=== PATIENT | female | born 1965 | race Caucasian/White ===

== ENCOUNTER 2020-08-22 10:42 | Outpatient (CLI) | payer BC, SELFPAY ==
--- NOTE | ~2020-08-22 | CT_ITS ---
EXAMINATION:CT lung screening DATE: 08/22/2020 11:17 INDICATION: Personal history of tobacco dependence. Current smoker with 37 pack year history. TECHNIQUE: Computed tomography (CT) of the chest was performed without intravenous contrast. Automate d exposure control and iterative reconstruction technique were employed. The dose-length product (DLP ) was 442.70 mGy-cm. COMPARISON: Chest CT 12/30/2006, CT abdomen and pelvis 05/24/2017 FINDINGS: There is mild emphysema. There is mild atelectasis bilaterally. A calcified left lung nodul e and calcified left hilar lymph nodes are consistent with old granulomatous disease. There are great er than 10 scattered nodules in the lungs. Nodules at the minor fissure and in right middle lobe rosendo uring up to 7 mm are stable from 12/30/2006. The largest nodule that is new from 12/26/2006 measures 4 mm in right lower lobe. No pleural effusion. The heart size is normal. There are coronary artery calcif ications. No pericardial effusion. There is diffuse hepatic steatosis. There is thoracic dextroscolio sis and severe spondylosis. IMPRESSION: 1. Lung-RADS category 3: Probably benign. Further evaluation is recommended with noncontrast low-dose chest CT in 6 months. Reviewed, dictated and finalized at location A. IMPRESSION: 1. Lung-RADS category 3: Probably benign. Further evaluation is recommended wit h noncontrast low-dose chest CT in 6 months.
== END 2020-08-22 10:43 | disposition home or self-care (01) ==
PROVIDERS: PCP Internal Medicine; Visit Provider Nurse Practitioner
DX: Z12.2 Encounter for screening for malignant neoplasm of respiratory organs (principal); Z87.891 Personal history of nicotine dependence; R91.1 Solitary pulmonary nodule; J43.9 Emphysema, unspecified; I25.10 Atherosclerotic heart disease of native coronary artery without angina pectoris
CPT/HCPCS: G0297

== ENCOUNTER 2021-03-17 12:48 | Outpatient (CLI) | payer BC, SELFPAY ==
--- NOTE | ~2021-03-17 | CT_ITS ---
EXAMINATION: CT diagnostic chest wo con DATE: 03/17/2021 13:09 INDICATION: Multiple nodules of the lung TECHNIQUE: Computed tomography (CT) of the chest was performed without intravenous contrast. The dose -length product was 364.61 mGy-cm. Automated exposure control and iterative reconstruction technique were employed. COMPARISON: CT dated 08/22/2020 and 12/30/2006 FINDINGS: There is atherosclerosis of the aorta and coronary arteries. No significant lymphadenopathy . No significant pleural or pericardial effusion. No endobronchial lesions. Stable bilateral pulmonar y nodules, largest measuring up to 7 mm involving the minor fissure and right middle lobe. Mild emphy sema. No new pulmonary nodules or masses. No focal airspace consolidation. No endobronchial lesions. No thoracic lymphadenopathy. Mild thoracic spondylosis. IMPRESSION: 1. Stable bilateral pulmonary nodules, likely benign. Follow-up low dose CT chest in 12 months recomm ended. Reviewed, dictated and finalized at location B. IMPRESSION: 1. Stable bilateral pulmonary nodules, likely benign. Follow-up low dose CT [facility] st in 12 months recommended.
== END 2021-03-17 12:49 | disposition home or self-care (01) ==
PROVIDERS: PCP Internal Medicine; Visit Provider Nurse Practitioner
DX: R91.8 Other nonspecific abnormal finding of lung field (principal)
CPT/HCPCS: 71250

== ENCOUNTER 2022-02-02 08:15 | Outpatient (CLI) | payer MEDICARE, SELFPAY ==
--- NOTE | ~2022-02-02 | MM_ITS ---
EXAMINATION: MM screening melo BI w zulema HISTORY: Screening mammogram TECHNIQUE: Craniocaudal and mediolateral oblique 3-D tomosynthesis images were obtained and synthetic 2-D images were generated. CAD analysis was submitted and interpreted. COMPARISON: No prior mammogram is available for comparison at this institution. BREAST PARENCHYMAL COMPOSITION: There are scattered areas of fibroglandular density. FINDINGS: There is no evidence of suspicious mass, calcification, or architectural distortion to sugg est malignancy in either breast. IMPRESSION: 1. No mammographic evidence of malignancy. 2. Recommend routine screening mammography in one year. BI-RADS Category 1: Negative Reviewed, dictated and finalized at location A.
== END 2022-02-02 08:16 | disposition home or self-care (01) ==
PROVIDERS: PCP Internal Medicine; Visit Provider Internal Medicine
DX: Z12.31 Encounter for screening mammogram for malignant neoplasm of breast (principal)
CPT/HCPCS: 77063; 77067

== ENCOUNTER 2022-03-06 08:03 | Emergency (ER) | payer MEDICARE, SELFPAY ==
[2022-03-06 08:11] VITALS: BP 154/76; PULSE 80; RESP 16; TEMP 36.2; O2SAT 100
--- NOTE | 2022-03-06 08:15 | ED.EAR ---
HPI - Ear Problem General Chief complaint: Ear Stated complaint: Ear Pain Time Seen by Provider: 03/06/22 08:16 Source: patient Mode of arrival: ambulatory Limitations: no limitations History of Present Illness HPI Narrative: 56-year-old female presents with complaint of right ear pain for 2 days. No other complaints. Taking ibuprofen for pain. Denies sinus symptoms, nasal congestion. No dizziness. No change to hearing. All systems reviewed and negative except as noted above. Related Data Home Medications Medication Instructions Recorded Confirmed budesonide-formoterol HFA 160 1 inh INHALATION ONCE 01/05/22 03/06/22 mcg-4.5 mcg/actuation aerosol inhaler hydrochlorothiazide 12.5 mg tablet 12.5 mg PO DAILY 01/05/22 03/06/22 montelukast 10 mg tablet 10 mg PO DAILY 01/05/22 03/06/22 pravastatin 40 mg tablet 40 mg PO DAILY 01/05/22 03/06/22 quinapril 40 mg tablet 40 mg PO DAILY 01/05/22 03/06/22 tiotropium bromide 2.5 2 puff INHALATION DAILY 01/05/22 03/06/22 mcg/actuation mist for inhalation verapamil mg PO 03/06/22 Allergies Allergy/AdvReac Type Severity Reaction Status Date / Time No Known Allergies Allergy Verified 03/06/22 08:14 Review of Systems Review of Systems: CONSTITUTIONAL: Denies fever, chills, or sweats. EYES: Denies visual changes, redness, or discharge. ENT: Denies rhinorrhea, congestion, sore throat. Reports right ear pain. CARDIOVASCULAR: Denies chest pain, palpitations, or edema. RESPIRATORY: Denies cough or dyspnea. GASTROINTESTINAL: Denies abdominal pain, nausea, vomiting, or diarrhea. GENITOURINARY: Denies dysuria or hematuria. SKIN: Denies rash or itching. MUSCULOSKELETAL: Denies back pain, joint pain, or myalgia. NEUROLOGIC: Denies headache, numbness, or weakness. PSYCHIATRIC: Denies anxiety or depression. All other systems reviewed are negative, except as documented in HPI. [facility] Past Medical History Medical History (Updated 03/06/22 @ 08:20 by Suzanne Serrano NP) Arthritis of left glenohumeral joint History of stress test Approx. 5 years ago. Surgical History Surgical History History of hand surgery right History of shoulder surgery left Hx of hand surgery left Family History Family History (Updated 01/25/22 @ 08:12 by Sherry Franz MA) Other Diabetes mellitus High cholesterol Hypertension Social History Social History Smoking status: Former smoker Tobacco type: cigarettes Alcohol intake: never Substance use: never Substance use type: does not use Comments At time of signature, agree with nursing past medical, surgical, social and family history. There is no relevant family history pertinent to the presenting complaint. Exam Narrative: GENERAL: This is a well-nourished, well-developed patient, in no apparent distress. HEAD: normocephalic, atraumatic. EYES: PERRL. Sclera clear/white. Vision is grossly intact. EARS: External ears normal, auditory canals clear and without drainage, TMs normal without perforation. Hearing grossly intact. NOSE: External nose normal with no obvious nasal discharge, nares without redness, no rhinorrhea. THROAT: Mucous membranes moist, posterior pharynx clear. NECK: Neck supple, non-tender without lymphadenopathy, masses or thyromegaly. CARDIOVASCULAR: Regular rate and rhythm without murmurs, gallops, or rubs. RESPIRATORY: Clear to auscultation. Breath sounds equal bilaterally. No wheezes, rales, or rhonchi. GASTROINTESTINAL: Abdomen soft, non-tender, nondistended. Bowel sounds are active. No hepato-splenomegaly, or palpable masses. No guarding. SKIN: warm, Dry, intact with no suspicious lesions or rash, good texture and turgor. NEURO: awake, alert, and oriented to person, place and time. There were no obvious focal neurologic abnormalities. EXTREMITIES: No joint tenderness, effusion, or juan francisco
== END 2022-03-06 08:37 | disposition home or self-care (01) ==
PROVIDERS: Emergency Provider Nurse Practitioner Family
DX: H66.91 Otitis media, unspecified, right ear (principal); Z87.891 Personal history of nicotine dependence; M19.012 Primary osteoarthritis, left shoulder; E78.00 Pure hypercholesterolemia, unspecified; I10 Essential (primary) hypertension; J44.9 Chronic obstructive pulmonary disease, unspecified; E11.9 Type 2 diabetes mellitus without complications
CPT/HCPCS: 99213; G0463

== ENCOUNTER → 2022-03-10 08:27 | Outpatient (CLI) | payer MEDICARE, SELFPAY ==
--- NOTE | ~2022-03-10 | CT_ITS ---
EXAMINATION:CT diagnostic chest wo con DATE: 03/10/2022 08:47 INDICATION: Lung nodules. TECHNIQUE: Computed tomography (CT) of the chest was performed without intravenous contrast. Automate d exposure control and iterative reconstruction technique were employed. The dose-length product (DLP ) was 361.46 mGy-cm. COMPARISON: Chest CT 03/17/2021, 08/22/2020 FINDINGS: There is mild emphysema. There is mild atelectasis in left lung. There is a 4 mm nodule in right upper lobe. There is a 3 mm nodule in right upper lobe. There is a 5 mm nodule in right middle lobe. There are nodules at minor fissure measuring up to 6 mm. There is a 4 mm nodule in right lower lobe. These findings are stable from 03/17/2021. A calcified left lung nodule and calcified left hilar lymph nodes are consistent with old granulomatous disease. No pleural effusion. The heart size is no rmal. There are coronary artery calcifications. No pericardial effusion. There is severe thoracic spo ndylosis. IMPRESSION: 1. Lung-RADS category 2: Benign appearance or behavior. Continue annual screening with noncontrast lo w-dose chest CT in 12 months. Reviewed, dictated and finalized at location B. IMPRESSION: 1. Lung-RADS category 2: Benign appearance or behavior. Continue annual screeni ng with noncontrast low-dose chest CT in 12 months.
== END ==
PROVIDERS: Visit Provider Nurse Practitioner
DX: R91.8 Other nonspecific abnormal finding of lung field (principal)
CPT/HCPCS: 71250

== ENCOUNTER 2023-01-19 15:57 | Emergency (ER) | payer MEDICARE, SELFPAY ==
--- NOTE | ~2023-01-19 | XR_ITS ---
EXAMINATION: XR ankle LT min 3V DATE: 01/19/2023 16:31 INDICATION: Left ankle injury. Fall. TECHNIQUE: 4 views of left ankle were obtained. COMPARISON: None. FINDINGS: Bone alignment is normal. No fracture. Joint spaces are normal. There are enthesophytes at the posterior and plantar aspects of calcaneal tuberosity. There are enthesophytes at medial and late ral malleoli. Ankle soft tissue swelling is noted. IMPRESSION: 1. No fracture. Reviewed, dictated and finalized at location A. EURIZER HELPER IMPRESSION: 1. No fracture.
[2023-01-19 16:15] VITALS: BP 158/81; PULSE 96; RESP 16; TEMP 36.6; O2SAT 97
--- NOTE | 2023-01-19 16:23 | ED.LOWEXIN ---
HPI - Extremity Injury (Lower) General Chief Complaint: Extremity Injury, Lower Stated Complaint: Left Ankle Pain Time Seen by Provider: 01/19/23 16:20 Source: patient Mode of arrival: ambulatory Limitations: no limitations History of Present Illness HPI Narrative: Avani is a 57-year-old female patient presenting to clinic today with complaints of left ankle pain after twisting her ankle when she came in to her front door and slipped on a dog bone. She is reporting pain to the left lateral ankle. States she did feel a crack/pop. Related Data Home Medications Medication Instructions Recorded Confirmed budesonide-formoterol HFA 160 1 inh inhalation ONCE 01/05/22 01/19/23 mcg-4.5 mcg/actuation aerosol inhaler (Symbicort) hydrochlorothiazide 12.5 mg tablet 12.5 mg PO DAILY 01/05/22 01/19/23 montelukast 10 mg tablet 10 mg PO DAILY 01/05/22 01/19/23 pravastatin 40 mg tablet 40 mg PO DAILY 01/05/22 01/19/23 quinapril 40 mg tablet 40 mg PO DAILY 01/05/22 01/19/23 tiotropium bromide 2.5 2 puff inhalation DAILY 01/05/22 01/19/23 mcg/actuation mist for inhalation (Spiriva Respimat) verapamil 180 mg tablet,extended 180 mg PO DAILY 03/06/22 01/19/23 release atorvastatin 40 mg tablet 40 mg PO DAILY 01/19/23 01/19/23 clopidogrel 75 mg tablet 75 mg PO DAILY 01/19/23 01/19/23 cyclobenzaprine 10 mg tablet 10 mg PO DAILY 01/19/23 01/19/23 glipizide 5 mg tablet 5 mg PO DAILY 01/19/23 01/19/23 Allergies Allergy/AdvReac Type Severity Reaction Status Date / Time No Known Allergies Allergy Verified 01/19/23 16:06 Review of Systems Review of Systems: Pertinent positives per HPI. Patient denies any fever, chills, rash, headache, visual changes, dizziness, cough, runny nose, sore throat, shortness of breath, chest pain, palpitations, nausea, vomiting, diarrhea, constipation, abdominal pain, or any urinary issues. PMFSH Past Medical History Medical History Arthritis of left glenohumeral joint History of stress test Approx. 5 years ago. Surgical History Surgical History History of hand surgery right History of shoulder surgery left Hx of hand surgery left Family History Family History Other Diabetes mellitus High cholesterol Hypertension Social History Social History Smoking status: Former smoker Tobacco type: cigarettes Alcohol intake: never Substance use: never Substance use type: does not use Comments At the time of my signature, I reviewed and agree with the nursing past medical, surgical, social, and family history. There is no relevant family history pertinent to the patient complaint. Exam Narrative: General: Well-developed, well nourished, in no apparent distress Head: Normocephalic, atraumatic. Cardio: Regular rate and rhythm, s1 and s2 normal, no murmur appreciated. Resp: Clear to auscultation bilaterally, no rhonchi, rales, wheezing or rubs. Musculoskeletal: No deformity, moderate swelling noted to the left lateral ankle, tender to palpation over the left lateral ankle, range of motion within normal limits however she is in quite a bit of pain with valgus and varus testing, muscle strength strong and equal, peripheral pulse strong, no cyanosis, normal gait and station Course Course Emergency Course: Portions of this record may have been created with voice recognition software. Level of Care: Express Care Visit Vital Signs Vital signs: Vital Signs Temperature 36.6 C 01/19/23 16:15 Pulse Rate 96 01/19/23 16:15 Respiratory Rate 16 01/19/23 16:15 Blood Pressure 158/81 H 01/19/23 16:15 Pulse Oximetry 97 01/19/23 16:15 Oxygen Delivery Room Air 01/19/23 16:15 Temperature 36.6 C 01/19/23 16:15 Pulse R
== END 2023-01-19 16:48 | disposition home or self-care (01) ==
PROVIDERS: Emergency Provider Nurse Practitioner Family
DX: S93.412A Sprain of calcaneofibular ligament of left ankle, initial encounter (principal); Z87.891 Personal history of nicotine dependence; X50.0XXA Overexertion from strenuous movement or load, initial encounter
CPT/HCPCS: 73610; 99213; G0463

== ENCOUNTER → 2023-03-22 07:37 | Outpatient (CLI) | payer MEDICARE, SELFPAY ==
--- NOTE | ~2023-03-22 | CT_ITS ---
EXAMINATION: CT diagnostic chest wo con DATE: 03/22/2023 08:13 INDICATION: Multiple nodule of lung TECHNIQUE: Computed tomography (CT) of the chest was performed without intravenous contrast. Addition al 3D reconstructions utilizing coronal maximum intensity projection (MIP) were performed. Automated exposure control and iterative reconstruction technique were employed. The dose-length product was 32 0.32 mGy-cm. COMPARISON: 03/10/2022 and 08/22/2020 FINDINGS: Small pneumatocele in the right middle lobe. Mild atelectasis at the basilar left lower lobe and ante romedial lingula and right middle lobe. Again seen are multiple small scattered bilateral pulmonary n odules, the largest measuring 5 mm in the right middle lobe and the remaining measuring 4 mm or small er. There are also a few small flat likely intrafissural lymph nodes, the largest measuring 9 mm in l ength and 3 mm in thickness. There is also unchanged since 08/22/2022 and which along with a couple sm all calcified nodules in the left lung and calcified left hilar lymph nodes are likely sequela of old granulomatous disease. A few nodules are noted on the earlier study which have since resolved. No ne w or enlarging nodules identified. No pneumonia, pulmonary edema or pleural effusion. Heart size is n ormal. Atherosclerotic coronary artery calcifications. No pericardial effusion. Thoracic aorta is nor mal in caliber. No pathologically enlarged thoracic lymphadenopathy. Mild thoracic dextroscoliosis wi th severe spondylosis. IMPRESSION: 1. No interval change since 2019 and several small calcified and noncalcified pulmonary nodules and a few intrafissural lymph nodes, almost certainly benign sequela of old granulomatous disease. No new or enlarging pulmonary nodules identified. Reviewed, dictated and finalized at location L. IMPRESSION: 1. No interval change since 2019 and several small calcified and noncalcified p ulmonary nodules and a few intrafissural lymph nodes, almost certainly benign s equela of old granulomatous disease. No new or enlarging pulmonary nodules iden tified.
== END ==
PROVIDERS: PCP Internal Medicine; Visit Provider Nurse Practitioner
DX: R91.8 Other nonspecific abnormal finding of lung field (principal)
CPT/HCPCS: 71250

== ENCOUNTER 2023-05-05 15:35 | Outpatient (CLI) | payer MEDICARE, SELFPAY ==
--- NOTE | ~2023-05-05 | MM_ITS ---
EXAMINATION: MM screening melo BI w zulema HISTORY: Screening mammogram TECHNIQUE: Craniocaudal and mediolateral oblique 3-D tomosynthesis images were obtained and synthetic 2-D images were generated. CAD analysis was submitted and interpreted. COMPARISON: 02/02/2022 bilateral screening mammogram examination BREAST PARENCHYMAL COMPOSITION: There are scattered areas of fibroglandular density. FINDINGS: There is an approximately 2.5 mm irregular high density opacity at the posterior central ri ght breast on craniocaudal view. Diagnostic right mammogram and right breast ultrasound are recommend ed. Otherwise there is no evidence of suspicious mass, calcification, or architectural distortion to sug gest malignancy in either breast. There has been no other suspicious interval change. IMPRESSION: 1. Irregular 2.5 mm high density opacity in the posterior central right breast on craniocaudal view 2. Diagnostic right mammogram and targeted right breast ultrasound examination are recommended BI-RADS Category 0: Incomplete: Needs additional imaging evaluation. Reviewed, dictated and finalized at location A.
== END 2023-05-05 15:36 | disposition home or self-care (01) ==
LOC: ANHIMG 15:37
PROVIDERS: PCP Internal Medicine; Visit Provider Internal Medicine
DX: Z12.31 Encounter for screening mammogram for malignant neoplasm of breast (principal); R92.8 Other abnormal and inconclusive findings on diagnostic imaging of breast
CPT/HCPCS: 77063; 77067

== ENCOUNTER 2023-08-04 10:51 | Outpatient (CLI) | payer MEDICARE, SELFPAY ==
--- NOTE | ~2023-08-04 | MM_ITS ---
EXAMINATION: MM diagnostic melo RT w zulema HISTORY: Regular 2.5 mm high density opacity in posterior central right breast on screening craniocau michael view of 05/05/2023 TECHNIQUE: Additional 3-D tomosynthesis images of the right breast were performed and synthetic 2-D i mages were generated. Rolled medial and rolled lateral craniocaudal views of right breast. CAD analys is was submitted and interpreted. COMPARISON: 05/05/2023 bilateral screening mammogram BREAST PARENCHYMAL COMPOSITION: There are scattered areas of fibroglandular density. FINDINGS: The small irregular opacity in the very posterior central right breast on screening cranioc audal view of 05/05/2023 is likely due to composite shadowing. No suspicious mass lesion is evident. IMPRESSION: 1. No mammographic evidence of malignancy 2. Routine annual mammographic screening is recommended BI-RADS Category 1: Negative Reviewed, dictated and finalized at location A.
== END 2023-08-04 10:52 | disposition home or self-care (01) ==
PROVIDERS: PCP Internal Medicine; Visit Provider Internal Medicine
DX: R92.8 Other abnormal and inconclusive findings on diagnostic imaging of breast (principal)
CPT/HCPCS: 77061; 77065; G0279

== ENCOUNTER 2024-03-28 07:28 | Outpatient (CLI) | payer MEDICARE, SELFPAY ==
--- NOTE | ~2024-03-28 | CT_ITS ---
CT Scan of the Chest without Contrast: Clinical Indication: Pulmonary nodule Technique: Contiguous sections were acquired throughout the chest without intravenous contrast. Dose reduction technique was used on this scan by utilizing automated exposure control and iterative recon struction technique. The dose-length product (DLP) was 323.44 mGy-cm. COMPARISON: 03/22/2023 Findings: There is no evidence of any significant mediastinal, hilar or axillary lymphadenopathy. Extensive cor onary artery calcifications are present. There is no evidence of pleural or pericardial effusion. Stable 4 mm right upper lobe pulmonary nodule (axial image 26). Stable subcentimeter right middle lob e pulmonary nodules. Stable 5 mm right lower lobe pulmonary nodule. Images through the upper abdomen reveal no abnormalities. Impression: Stable subcentimeter pulmonary nodules. Reviewed, dictated and finalized at location . Impression: Stable subcentimeter pulmonary nodules.
== END 2024-03-28 07:29 ==
LOC: MICIMG 07:29
PROVIDERS: PCP Internal Medicine; Visit Provider Internal Medicine
DX: R91.1 Solitary pulmonary nodule (principal); R91.8 Other nonspecific abnormal finding of lung field
CPT/HCPCS: 71250

== ENCOUNTER 2025-02-22 07:13 | Outpatient (CLI) | payer MEDICARE, SELFPAY ==
--- NOTE | ~2025-02-22 | DEXA_ITS ---
Bone Density Report Name: SULMA ANGELES Age: 59 Sex: Female Ethnicity: White Date of : 1965 Indication: postmenopausal; screening for osteoporosis; height loss; asthma or emphysema; Referring Provider: NIDHI, NCI Study: Bone densitometry was performed. Exam Date: February 22, 2025 Accession number: [id number] Bone Density: Region BMD T-score Z-score Classification AP Spine(L1-L4) 1.010 -0.3 1.1 Normal Femoral Neck (Left) 0.837 -0.1 1.2 Normal Total Hip (Left) 0.969 0.2 1.2 Normal Femoral Neck (Right) 0.764 -0.8 0.5 Normal Total Hip (Right) 0.949 0.1 1.0 Normal Total Hip Mean 0.959 0.2 1.1 Normal World Health Organization criteria for BMD impression classify patients as: Normal (T-score at or above -1.0), Osteopenia (T-score between -1.0 and -2.5), or Osteoporosis (T-score at or below -2.5). 10-year Fracture Risk: FRAX not reported because: All T-scores for Spine Total, Hip Total, Femoral Neck at or above -1.0 Clinical Information Provided by Patient: Smokes Has used the following medications: Vitamin D Has the following medical conditions: Asthma or Emphysema, COPD Patient maximum height was 69 Menopause Age: 36 No regular weight bearing exercise Does not regularly consume dairy products Drinks caffeinated beverages Onset of menses at age 17 Number of children 1 Impression: The patient has normal bone mass. The patient has risk factors, including: smoking. Discussion: BONE DENSITY IS ABOVE THE MINIMUM DESIRABLE LEVEL AT ALL SKELETAL SITES TESTED. This patient?s bone mineral density is above the minimum desirable level (T-score -1.0 or better) at all sites measured. The patient should follow a healthful lifestyle (good nutrition with adequate calcium and vitamin D, and appropriate weight-bearing exercise). Follow-Up: Consider repeating this study in 5 years or sooner if there is some new clinical indication. Reported by: GEOVANY on 02/22/2025 7:55:00 AM. Reviewed, dictated and finalized at location [facility]
--- NOTE | ~2025-02-22 | MM_ITS ---
EXAMINATION: MM screening melo BI w zulema HISTORY: Screening TECHNIQUE: Craniocaudal and mediolateral oblique 3-D tomosynthesis images were obtained and synthetic 2-D images were generated. CAD analysis was submitted and interpreted. COMPARISON: Comparison to multiple prior studies sequentially, with oldest reviewed study dated 02/02. BREAST PARENCHYMAL COMPOSITION: Not dense: There are scattered areas of fibroglandular density. FINDINGS: There is no evidence of suspicious mass, calcification, or architectural distortion to sugg est malignancy in either breast. There has been no suspicious interval change. IMPRESSION: 1. No mammographic evidence of malignancy. 2. Recommend routine screening mammography in one year. BI-RADS Category 1: Negative Reviewed, dictated and finalized at location A.
--- OUTSIDE RECORDS SUMMARY | 2025-02-22 07:17 | XMS_ITS | Encounter Summary ---
Author Organization [facility] Facility Care Team Providers Care Geologist Name Role Phone Gail Lee MD Primary Care Provide r Mala Smith CFD ENGINEER Unavailable [phone] Gail Lee MD Primary Care Provide r Encounter Details Date Type Department Care Team (Latest Contact Info) Description 01/30/2019 Orders Only [facility] CLINCONV ProviderIna MD [address] [place] [id number] Social History Tobacco Use Types Packs/Day Years Used Date Smoking Tobacco: Former Comments Unknown Sex and Gender Information Value Date Recorded Sex Assigned at Not on file Legal 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 Historical Provider Final Res ult documented in this encounter Visit Diagnoses Not on filedocumented in this encounter Care Teams Geologist Relationship Specialty Start Date End Date Gail Lee MD [address] [address] PCP - General 01/01/19 02/27/19 Gail Lee MD [address] [address] PCP - General Internal Medicine 03/20/19 Mala Smith NP [address] [address] 01/01/19 02/27/19 documented as of this encounter
--- OUTSIDE RECORDS SUMMARY | 2025-02-22 07:17 | XMS_ITS | Continuity of Care Document ---
Author Organization [facility] Address [address] [place] [address] [place] [address] Phone Care Team Providers Care Activities Director Name Role Phone Kimberly Vaz Unavailable Unavailable Procedures Procedure Date Office/outpatient Visit, [facility] Advance Directives Directive Yes / No Effective Date File Name No Information Encounters Encounter Description Practice Location Reason(s) For Visit Diagnoses Date Provider Providers Copied on Encounter Office/outpat ient Visit, [facility], [id number] [place] [address] [address], [place], [place], [id number], [place] tel:[phone] [facility] No Information 0 Татьяна Harris. [address] [place] , [address], [place], [address], [place]. tel:[phone] Family History Family Member Type Diagnosis Age At Onset No Information Payers Payer name Insurance type Covered green party ID Authoriza tion(s) No Information Social History Type Description Quantity Date Captured Comments Sex Female Smoking Status No Information Chief Complaint And Reason For Visit No Information Reason For Referral Reason For Referral No Information History Of Present Illness Encounter Date Complaint History Of Prese nt Illness No Information Functional Status Date Functional Assessmen t No Information Instructions Date Instruction Additional Infor mation No Information Assessments Type Assessment Date No Information Patient Care Teams Name Effective Dates (start - stop) Status Members No Information
--- OUTSIDE RECORDS SUMMARY | 2025-02-22 07:17 | XMS_ITS | Encounter Summary ---
Author Organization 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 Historical Provider Final Res ult documented in this encounter Visit Diagnoses Not on filedocumented in this encounter Care Teams Watch Engine Operator Relationship Specialty Start Date End Date Gail Lee MD [address] [address] PCP - General 01/01/19 02/27/19 Gail Lee MD [address] [address] PCP - General Internal Medicine 03/20/19 Mala Smith NP [address] [address] 01/01/19 02/27/19 documented as of this encounter
--- OUTSIDE RECORDS SUMMARY | 2025-02-22 07:17 | XMS_ITS | Referral Summary ---
Author Organization [facility] Address [address] [place] [address] Care Team Providers Care Auto Body Mechanic Apprentice Name Role Phone Gail Lee MD Primary Care Provide r Allergies No known active allergies Medications hydroCHLOROthia zide (HYDRODIURIL) 12.5 mg tabletIndicatio ns:Edema,hypert ension Take 1 tablet (12.5 mg total) by mouth every morning Active montelukast (SINGULAIR) 10 mg tabletIndicatio ns:Maintenance Therapy for Asthma,Seasonal Allergic Rhinitis Take 1 tablet (10 mg total) by mouth every morning Active verapamil SR (CALAN SR) 180 mg CR tabletIndicatio ns:hypertension Take 1 tablet (180 mg total) by mouth every morning Active albuterol (PROVENTIL,VENT LUIS) 2.5 mg /3 mL (0.083 %) nebulizer solutionIndicat ions:Acute Asthma Attack,Chronic Obstructive Pulmonary Disease Take 3 mL (2.5 mg total) by nebulization as needed for wheezing or shortness of breath Active cyclobenzaprine (FLEXERIL) 10 mg tabletIndicatio ns:Muscle Spasm Take 1 tablet (10 mg total) by mouth 3 (three) times a day as needed for muscle spasms Active glipiZIDE (GLUCOTROL) 5 mg tabletIndicatio ns:type 2 diabetes mellitus Take 1 tablet (5 mg total) by mouth every morning 2 Active albuterol HFA (PROVENTIL HFA,VENTOLIN HFA,PROAIR HFA) 90 mcg/actuation inhalerIndicati ons:Acute Asthma Attack,Chronic Obstructive Pulmonary Disease Inhale 2 puffs as needed for wheezing or shortness of breath Active lisinopriL (PRINIVIL,ZESTR IL) 20 mg tabletIndicatio ns:hypertension Take 1 tablet (20 mg total) by mouth every morning Active budesonide-glyc opyr-formoterol 160-9-4.8 mcg/actuation HFA aerosol inhalerIndicati ons:Bronchospas m Prevention with COPD,asthma Inhale 2 puffs 2 (two) times a day Active aspirin 81 mg enteric coated tabletIndicatio ns:Deep Vein Thrombosis Prevention Take 1 tablet (81 mg total) by mouth 2 (two) times a day 28 tablet 4 Active acetaminophen 500 mg capsuleIndicati ons:Pain Take 2 capsules (1,000 mg total) by mouth every 6 (six) hours 90 tablet 4 Active Additional Information Patient not taking.Reported on 11/19/2024 celecoxib (CeleBREX) 200 mg capsuleIndicati ons:Postoperati ve Acute Pain,Pain Take 1 capsule (200 mg total) by mouth 2 (two) times a day 28 capsule 4 Active Additional Information Patient not taking.Reported on 11/19/2024 docusate sodium (COLACE) 100 mg capsuleIndicati ons:constipatio n Take 1 capsule (100 mg total) by mouth 2 (two) times a day 60 capsule 4 Active Additional Information Patient not taking.Reported on 11/19/2024 HYDROcodone-sumanth taminophen (NORCO) 5-325 mg per tabletIndicatio ns:Pain TAKE ONE TO TWO TABLETS EVERY 4 TO 6 HOURS PRN PAIN 40 tablet 4 Active atorvastatin (LIPITOR) 80 mg tablet Take 1 tablet (80 mg total) by mouth daily 4 Active cholecalciferol (VITAMIN D-3) 50,000 unit capsule Take 1 capsule (50,000 Units total) by mouth once a week Active Active Problems Problem Noted Date Diagnosed Date Acute upper respiratory infection 11/19/2024 Assessment & Plan (11/19/2024 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 Osteoarthritis of left shoul nirav, unspecified osteoarthritis type 01/17/2024 Osteoarthritis of glenohumeral joint, left 11/01 Status post insertion of dayna g-eluting stent into left anterior descending (LAD) artery 10/13/2022 Abnormal nuclear stress test 09/14/2022 Abnormal nuclear cardiac imaging test 08/09/2022 Essential hypertension 05/31/2022 Diabetes mellitus type II, non insulin dependent 05/31/2022 Coronary artery disease of n ative artery of [place] heart with stable angina pectoris 05/31/2022 RONNELL (obstructive sleep apnea) 05/31/2022 Assessment & Plan (11/19/2024 12:24 PM [employer]ILD C[employer] ATT[employer]ANT [employer]): She has tried and failed PAP therapy I have encouraged her to follow with sleep medicine to explore alternate options We have discussed the risks of uncorrected RONNELL Abnormal liver function 04/06/2022 Coronary arteriosclerosis 04/06/2022 Breakthrough bleeding 03/02/2022 Fatigue 09/18/2021 Insomnia with sleep apnea 09/18/2021 Multiple nodules of lung 09/18/2021 Obstructive sleep apnea syndrome 09/01/2020 Asthma-chronic obstructive p ulmonary disease overlap syndrome 01/01/2020 Assessment & Plan (11/19/2024 12:22 PM [employer]ILD [employer] ATT[employer]): Continue Breztri 2 puffs BID. Albuterol as needed only, discussed indications for use She has filled out the assistance paperwork today in the office She is current on vaccines I strongly recommend pulmonary rehab I have instructed her to monitor her pulse ox at home when she is dyspneic and to call the office if this registers below 88% Obstructive sleep apnea syndrome 10/01/2019 Anxiety state 06/25/2019 Asthma 06/25/2019 Essential hypertension 06/25/2019 Gastroesophageal reflux disease 06/25/2019 Mixed hyperlipidemia 06/25/2019 Low back pain 06/25/2019 Vitamin D deficiency 06/25/2019 Sinusitis 06/25/2019 Daytime hypersomnia 04/24/2019 Dyspnea on exertion 04/24/2019 Obesity with body mass index 30 or greater 04/24 Chronic obstructive pulmonary disease 04/24/2019 Lung mass 03/27/2019 Atherosclerotic heart diseas e of [place] coronary artery without angina pectoris 03/27/2019 Bilateral carpal tunnel syndrome 12/18/2018 Cubital tunnel syndrome on left 12/18/2018 Cubital tunnel syndrome on right 12/18/2018 Trigger finger of left thumb 12/18/2018 Trigger finger of right thumb 12/18/2018 Numbness of hand 08/29/2017 Dizziness 03/01/2017 Arthralgia of ankle 01/18/2017 Knee pain 08/15/2015 Dyslipidemia 05/22/2009 Shortness of breath 05/22/2009 Fatigue 05/22/2009 Obesity 05/22/2009 Nicotine dependence, cigarettes, uncomplicated 0 05/22/2009 Assessment & Plan (11/19/2024 12:23 PM [employer]ILD [employer] ATT[employer]ANT [employer]): She continues to smoke about 1 PPD - Smoking cessation counseling and techniques reviewed at length - Avoid triggers and use distraction techniques - Information given regarding [place] Tobacco Quit line: 4-299-[phone] for free services - 4 minutes spent discussing cessation She is due for annual lung cancer screening in March of 2025 Asthma 05/22/2009 Arteriosclerosis of coronary artery 05/22/2009 Essential (primary) hypertension 05/22/2009 Immunizations Immunization Administration Dates Next Due Influenza LAIV (Nasal) 08/23/2022 Influenza, Quadrivalent, Split, Intramuscular Influenza, Trivalent, Cell C ulture-based MDCK, Preservative Free, Antibiotic Free, Intramuscular 09/09/2015,10/09/2014 Influenza, Trivalent, Preservative Free, Intramu scular 10/01/2013 Tdap 10/31/2018 Social History Tobacco Use Types Packs/Day Years Used Date Smoking Tobacco: Every Day Cigarettes 0.5 44.3 Started: 1980 Passive Smoke Exposure: Never Smokeless Tobacco: Never Tobacco Cessation:Ready to Q uit: Not Asked; Counseling Given: Not Answered Alcohol Use Standard Drinks/Week Comments Never 0 (1 standard drink = 0.6 oz pur e alcohol) AUDIT-C Answer Date Recorded Q1: How often do you have a drink containing alc ohol? Never 11/19/2024 Average Number of Drinks Not on file 024 Frequency of Binge Drinking Not on file 10/23 Personal Safety Answer Date Recorded Have you ever been in or are you currently in a harmful physical or emotional relationship or is someone making you feel afraid or unsafe? Denies 01/17/2024 Comments No Sex and Gender Information Value Date Recorded Sex Assigned at Not on file Legal Sex Female 11:07 PM [employer] Gender Identity Not on file Sexual Orientation Not on file Occupation Industry Job Start Date Job End Date [employer] Not on file Not on file Not on file Last Filed Vital Signs Vital Sign Reading Time Taken Comments Blood Pressure 124/72 11/19/2024 8:24 AM [employer]ILD [employer] Pulse 87 11/19/2024 8:24 AM [employer] Temperature 36.7 C (98.1 F) 11/19/2024 8:24 AM [employer] Respiratory Rate 16 11/19/2024 8:24 AM [employer] Oxygen Saturation 95% 11/19/2024 8:24 AM [employer] Inhaled Oxygen Concentration - - Weight 119.4 kg (263 lb 3.2 oz) 11/19/2024 8:24 AM [employer] Height 175.3 cm (5' 9 ) 11/19/2024 8:24 AM [employer] Body Mass Index 38.87 11/19/2024 8:24 AM [employer] Plan of Treatment Not on file Medical Devices Implanted Type Area Technical Writer Device Identifier Shelf Expiration Date Model / Serial / Lot [employer] Xience Skypoint Everolimus Eluting Coronary Stent [id number] Rapid-Exchange [id number] - [id number] Implanted:Qty: 1 on 09/14/2022 by Betty Juarez MD at [facility] [employer] 02/18/2023 [id number] / / [id number] [facility] Tailored Fit Angio-Seal Vip 6fr Closere Device [id number] - [id number] Implanted:Qty: 1 on 09/14/2022 by Betty Juarez MD at [facility] Tailored Fit 06/20/2023 [id number] / / [id number] [employer] Simplex P Radiopaque Full Dose Cement Bone Sterile 6191-1-010 - [id number] Implanted:Qty: 1 on 01/17/2024 by Austin Bach MD at [facility] [employer] [id number] 09/20/2025 6191-1-010 / / [id number] [employer] [place] Modular Component Glenoid Sterile Latex Free [id number] - [id number] Implanted:Qty: 1 on 01/17/2024 by Austin Bach MD at [facility] [employer] [id number] 08/21/2032 [id number] / / [id number] [employer] Component Glenoid 4 Peg Modular Shoulder Left Augment Sz 3 [id number] - [id number] Implanted:Qty: 1 on 01/17/2024 by Austin Bach MD at [facility] [employer] [id number] 06/14/2028 [id number] / / [id number] [employer] Stem Humeral Adapter Implant Shoulder Reverse 135 Degree Identity [id number] - [id number] Implanted:Qty: 1 on 01/17/2024 by Austin Bach MD at [facility] [employer] [id number] 11/01/2032 [id number] / / [id number] [employer] Humeral Stem Standard Size 9 [id number] - [id number] Implanted:Qty: 1 on 01/17/2024 by Austin Bach MD at [facility] [employer] [id number] 12/07/2032 [id number] / / [id number] [employer] Head Humeral Adapter Implant Shoulder Reverse Stem Fixed Identity [id number] - [id number] Implanted:Qty: 1 on 01/17/2024 by Austin Bach MD at [facility] [employer] [id number] 06/12/2033 [id number] / / [id number] [employer] Head Humeral Shoulder Reverse Stem Fixed Identity [id number] [employer] [id number] - [id number] Implanted:Qty: 1 on 01/17/2024 by Austin Bach MD at [facility] [employer] [id number] 10/01/2032 [id number] / / [id number] Procedures Procedure Name Priority Date/Time Associated Diagnosis Comments EGFR Timed 01/17/2024 11:49 PM [employer] POCT HEMOGLOBIN A1C Routine 12/27/2023 8 :48 AM [employer] from Last 3 Months or Most Recently Relevant to Health Maintenance Results * eGFR (01/17/2024 11:49 PM [employer]) eGFR >90 >=60 mL/min/1. 73 m2 [facility] Comment: Interpretive Data Reference Interval Normal >/= 90 mL/min/1.73m2 Mildly decreased* 60 - 89 mL/min/1.73m2 Mildly to moderately decreased 45 - 59 mL/min/1.73m2 Moderately to severely decreased 30 - 44 mL/min/1.73m2 Severely decreased 15 - 29 mL/min/1.73m2 Kidney Failure < 15 mL/min/1.73m2 *Relative to young adult level Estimated glomerular filtration rate is determined by the 2020 CKD-EPI equation recommended by the National Kidney Foundation (A Unifying Approach to GFR Estimation: Recommendations of the NKF-ASK Task Force on Reassessing the Inclusion of Race in Diagnosing Kidney Disease, JASN 2020). The CKD-EPI equation should not be used for patients with unstable renal function and has not been validated in children and those over 70. Current interpretive data was last reviewed 2021. Blood 01/17/2024 11:4 9 PM [facility] [employer] 01/18/2024 12:17 AM [employer] [employer] us Humberto Rojas DO LAB BLOOD ORDERABLES Fin al Result [facility] Department [place] [address] * (ABNORMAL) POCT hemoglobin A1c (12/27/2023 8:48 AM [employer]ILD [employer]) Hgb A1C, POC 6.3(H) 4.0 - 5.6 % [facility] Est Average Gluc POC 134 mg/dL [facility] Comment: The ADA recommends reporting an estimated Average Glucose (eAG) with all Hemoglobin A1c results using the equation derived from a study of 507 normal and diabetic adults. Minority populations were underrepresented and children were not included. (Diabetes Care 31:6983-5838, 2008). The eAG is not equivalent to a fasting glucose. Blood 12/27/2023 8:48 AM [facility] [employer] 12/27/2023 8:48 AM [employer] [employer] Austin Bach MD POINT OF CARE CLARKE T ORDERABLES Final Result Performing Organization Address City/State/[facility] Co de Phone Number [facility] Department [place] [address] from Last 3 Months or Most Recently Relevant to Health Maintenance Insurance HUMANA MEDICARE HMO HUMANA MEDICARE HMO HUMANA MEDICARE HMO Advance Directives For more information, please contact: [phone] * Full Code (Latest Code Status on File) Date Activated Date Inactivated Comments 01/17/2024 11:38 AM 01/18/2024 3:39 PM * Full Code Date Activated Date Inactivated Comments 09/14/2022 10:03 AM 09/15/2022 4:45 PM Care Teams Auto Body Mechanic Apprentice Relationship Specialty Start Date End Date Gail Lee MD PCP - General Internal Medicine 03/20/19
--- OUTSIDE RECORDS SUMMARY | 2025-02-22 07:17 | XMS_ITS | Clinical Summary ---
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): She continues to smoke about 1 PPD - Smoking cessation counseling and techniques reviewed at length - Avoid triggers and use distraction techniques - Information given regarding [place] Tobacco Quit line: [phone]-YES for free services - 4 minutes spent [...] Preservative Free, Intramu scular 10/01/2013 Tdap 10/31/2018 Surgical History Surgery Date Site/Laterality Comments CARPAL TUNNEL RELEASE Bilateral had CTR twice on both sides SECTION ELBOW ARTHROSCOPY Bilateral HEEL SPUR SURGERY Bilateral & cut tendons in arch of foot CARDIAC STENT PLACEMENT SHOULDER ARTHROSCOPY Left FLUORO GUIDED INJECTION SHOULDER LEFT 02/16/2023 Left Medical History Medical History Date Comments Asthma Hypercholesteremia Hypertension Pneumonia Diabetes (HCC) COPD (chronic obstructive pulmonary disease) (HC C) RONNELL (obstructive sleep apnea) do esnt use sleep machine CAD (coronary artery disease) PONV (postoperative nausea and vomiting) Family History Medical History Relation Name Comments Hypertension Brother Deep vein thrombosis Father Family history of deep venous thrombosis - (Added by TW Conv) Diabetes Father Family history of diabetes mellitus - (Added by TW Conv) Hypertension Father Family history of hypertension - (Added by TW Conv) Lung disease Father Lung trouble - (Added by TW Conv) Clotting disorder Mother Deep vein thrombosis Mother Family history of deep venous thrombosis - (Added by TW Conv) Hypertension Mother Family history of hypertension - (Added by TW Conv) Anesthesia problems Neg Hx Relation Name Status Comments Brother Father Mother Social History Tobacco Use Types Packs/Day Years [...] on file Legal Sex Female 11:07 PM LAYOUT OPERATOR Gender Identity Not on file Sexual Orientation Not on file 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 Not on file Not on file Obstetrics History Last Filed Vital Signs Vital Sign Reading Time Taken Comments Blood Pressure 124/72 11/19/2024 8:24 AM LAYOUT OPERATOR Pulse 87 11/19/2024 8:24 AM LAYOUT OPERATOR Temperature 36.7 C (98.1 F) 11/19/2024 8:24 AM LAYOUT OPERATOR Respiratory Rate 16 11/19/2024 8:24 AM LAYOUT OPERATOR Oxygen Saturation 95% 11/19/2024 8:24 AM LAYOUT OPERATOR Inhaled Oxygen Concentration - - Weight 119.4 kg (263 lb 3.2 oz) 11/19/2024 8:24 AM LAYOUT OPERATOR Height 175.3 cm (5' 9 ) 11/19/2024 8:24 AM LAYOUT OPERATOR Body Mass Index 38.87 11/19/2024 8:24 AM LAYOUT OPERATOR Plan of Treatment Health Maintenance Due Date Last Done Comments Albumin Creatinine Ratio, Urine 1965 Breast Cancer Screening-Mammogram 1965 Cervical Cancer Screening 1965 Colon Cancer Screening-Colonoscopy 1965 Depression Screening 1965 Hepatitis C Screening 1965 Dilated Eye Exam 1965 Foot Exam 1965 Lipid Panel 1965 Hepatitis B Screening 1983 Regular Well Visit/Exam 18-64 1983 Pneumococcal vaccine <65 (1 of 2 - PCV) 1984 Lung Cancer Screening 2015 Zoster Vaccine (1 of 2) 2015 Hemoglobin A1C 06/26/2024 12/27/2023 Covid-19 Vaccine (2023-2 5 season) 2024 10/21/2021, 02/10/2021, 01/13/2021 Influenza Vaccine (#1) 2024 , 09/02/2022, 08/23/2022, Additional history exists eGFR 01/17/2025 01/17/2024, 02/0 04/2024, 08/30/2022 DTaP/Tdap/Td Vaccine (2 - Td or Tdap) 10/31/2028 10/31/2018 Medical Devices Implanted Type Area Tiltrotor Crew Chief Device Identifier Shelf Expiration Date Model / Serial / Lot [employer] Xience Skypoint Everolimus Eluting Coronary Stent [id number] Rapid-Exchange [id number] - [id number] Implanted:Qty: 1 on 09/14/2022 by Betty Juarez MD at [facility] [employer] 02/18/2023 [id number] / / [id number] [facility] Comfy Angio-Seal Vip 6fr Closere Device [id number] - [id number] Implanted:Qty: 1 on 09/14/2022 by Betty Juarez MD at [facility] Memopal Varun 06/20/2023 [id number] / / [id number] [employer] Simplex P Radiopaque Full Dose Cement Bone Sterile 6191-1-010 - [id number] Implanted:Qty: 1 on 01/17/2024 by Austin Bach MD at [facility] [employer] [id number] 09/20/2025 6191-1-010 / / [id number] [employer] [place] Modular Component Glenoid Sterile Latex Free [id number] - [id number] Implanted:Qty: 1 on 01/17/2024 by Austin Bach MD at [facility] [employer] [id number] 08/21/2032 [id number] / / [id number] [employer] Component Glenoid 4 Peg Modular Shoulder Left Augment Sz 3 [id number] - [id number] Implanted:Qty: 1 on 01/17/2024 by Austin Bach MD at [facility] [employer] [id number] 06/14/2028 [id number] / / [id number] [employer] Stem Humeral Adapter Implant Shoulder Reverse 135 Degree Identity [id number] - [id number] Implanted:Qty: 1 on 01/17/2024 by Austin Bach MD at [facility] [employer] [id number] 11/01/2032 [id number] / / [id number] [employer] Humeral Stem Standard Size 9 [id number] - [id number] Implanted:Qty: 1 on 01/17/2024 by Austin Bach MD at [facility] [employer] [id number] 12/07/2032 [id number] / / [id number] [employer] Head Humeral Adapter Implant Shoulder Reverse Stem Fixed Identity [id number] - [id number] Implanted:Qty: 1 on 01/17/2024 by Austin Bach MD at [facility] [employer] [id number] 06/12/2033 [id number] / / [id number] [employer] Head Humeral Shoulder Reverse Stem Fixed Identity [id number] [place] [employer] [id number] - [id number] Implanted:Qty: 1 on 01/17/2024 by Austin Bach MD at [facility] [employer] [id number] 10/01/2032 [id number] / / [id number] Procedures Procedure Name Priority Date/Time Associated Diagnosis Comments EGFR Timed 01/17/2024 11:49 PM LAYOUT OPERATOR POCT HEMOGLOBIN A1C Routine 12/27/2023 8 :48 AM LAYOUT OPERATOR from Last 3 Months or Most Recently Relevant to Health Maintenance Results * eGFR (01/17/2024 11:49 PM LAYOUT OPERATOR) eGFR >90 >=60 mL/min/1. 73 m2 [facility] Comment: Interpretive Data Reference Interval Normal >/= [...] reviewed 2021. Blood 01/17/2024 11:4 9 PM LAYOUT OPERATOR 01/18/2024 12:17 AM LAYOUT OPERATOR us Humberto Rojas DO LAB BLOOD ORDERABLES Fin al Result [facility] [place] [address] * (ABNORMAL) POCT hemoglobin A1c (12/27/2023 8:48 AM LAYOUT OPERATOR) Hgb A1C, POC 6.3(H) 4.0 - 5.6 % [facility] Est Average Gluc POC 134 mg/dL [facility] Comment: The ADA recommends reporting an estimated Average Glucose (eAG) with all Hemoglobin A1c results using the equation derived from a study of 507 normal and diabetic adults. Minority populations were underrepresented and children were not included. (Diabetes Care 31:4424-5511, 2008). The eAG is not equivalent to a fasting glucose. Blood 12/27/2023 8:48 AM LAYOUT OPERATOR 12/27/2023 8:48 AM LAYOUT OPERATOR Austin Bach MD POINT OF CARE CLARKE T ORDERABLES Final Result Performing Organization Address City/State/[facility] Co de Phone Number [facility] [place] [address] from Last 3 Months or Most Recently Relevant to Health Maintenance Insurance [id number] HUMANA MEDICARE HMO [facility] MEDICARE HMO HUMANA MEDICARE HMO Advance Directives For more information, please contact: [phone] * Full Code (Latest Code Status on File) Date Activated Date Inactivated Comments 01/17/2024 11:38 AM 01/18/2024 3:39 PM * Full Code Date Activated Date Inactivated Comments 09/14/2022 10:03 AM 09/15/2022 4:45 PM Care Teams Helicopter Engineer Relationship Specialty Start Date End Date Gail Lee MD PCP - General Internal Medicine 03/20/19
--- OUTSIDE RECORDS SUMMARY | 2025-02-22 07:17 | XMS_ITS | Data Portability ---
Author Organization [place] [facility], Main Office Address [address] [place] [address] Care Team Providers Care Forging Operator Name Role Phone DENIA LEE Primary Care Provider [phone] DENIA LEE Referring Provider YAKOV SHIRLEY Orthopedic Surgeon PAPO GARZA Pot Press Operator WILDER WALLER Manager Cardiology Assessment Encounter Date Assessment Date Assessment LastModified by Organization Details LastModified Time 03/01/2024 03/01/2024 01/03/2023: TSH/FT4/CBC/CMP: WNL TG 174, LDL 107 A1C 6.3 07/07/2023: TG 171 A1C 6.6 VIT D 17.2 10/21/2023: HCT 47.3 Gluc 113 TG 180, LDL 115 A1C 6.3 VIT D 30.8 Not available 02/28/2024 18:29:58 04/10/2024 04/10/2024 Assessment: Nicotine smoke: 1.5 ppd since 1993 (quit 2 years in between) = 42 pack years Mild COPD Bilateral pulm nodules Mild OSAHS, AHI = 11, CPAP intolerant Plan: The following were reviewed and explained to the patient: primary care/referral note PFT 09/14/21 FEV1 2.40 L (82%), BD 50 mL = 2% Chest CT 03/17/21 stable up to 7 mm right pulm nodules Chest CT 03/10/22 stable up to 6 mm right pulm nodules Chest CT 03/22/23 stable up to 5 mm bilateral pulm nodules Chest CT 03/28/24 stable up to 5 mm right pulm nodules [facility] home sleep study 06/11/19 AHI = 11, supine AHI = 13 Nicotine cessation counseling provided for 4 minutes. [place] for quitting nicotine include getting ready, getting support and encouragement, learning new skills and behaviors and being prepared to handle slips. Tips for dealing with cravings provided. Prevention of subsequent illnesses from nicotine addiction discussed. Comorbidities include but are not limited to hypertension, cerebrovascular disease, coronary heart disease, congestive heart failure, hyperlipidemia, COPD/asthma, peptic ulcer disease, esophagitis/gastri tis, and osteoporosis. Therapy options offered include: Quitting by total abstinence Receiving nicotine replacement therapy Undergoing hypnosis Filling a bupropion or varenicline prescription Enrolling in Quit For Life program Registering at www.quitline.flux - neutrinity Making a call to 9-528-KCRC-NOW ( ). A strong, clear, personalized message was given to the patient to quit smoking. The patient was urged to set a quit date. We discussed patient's barriers to quitting and I will be of assistance when patient is ready to quit. I encouraged patient to inform friends and family of plans to quit with a request for support. I encouraged the patient to remove all cigarettes from the environment. We reviewed any previous quit attempts and lessons learned from them. I encouraged total abstinence from smoking and advised the patient that drinking alcohol and/or associating with other smokers are associated with failure or relapse. Patient can enroll in [facility]'s smoking cessation class through Zeenat Smith RN at . Enrollment is free and classes are held every tuesday of the month from 1:30 pm to 2:30 pm at the conference room next to the cafeteria on the ground floor. Differential diagnoses for pulmonary nodule: 1. malignant tumor 2. benign tumor 3. inflammatory processes 4. infectious process (viral, atypical bacterial, fungal, atypical mycobacterial) The Fleischner Society pulmonary nodule recommendations below pertain to the follow-up and management of indeterminate pulmonary nodules detected incidentally on CT and are published by the Fleischner Society. The guideline does not apply to lung cancer screening, patients younger than 35 years, or patients with a history of primary cancer or immunosuppression. These recommendations reflect the 2017 revision 4, which supersedes prior versions published in 2005 and 2013. Multiple solid nodules <6 mm (<100 mm3) *low-risk patients: no routine follow-up required *high-risk patients: optional CT at 12 months Multiple solid nodules >6 mm (>100 mm3) *low-risk patients: CT at 3-6 months, then consider CT at 18-24 months *high-risk patients: CT at 3-6 months, then CT at 18-24 months Cough/Dyspnea workup will be done as follows: Complete pulmonary function testing (PFT) General information on COPD was covered. Educational video was shown. The video explained what COPD is and how it affects breathing. Self-care skills such as not smoking, using medications as prescribed, oxygen therapy, and knowing when to contact the healthcare provider are covered. Diaphragmatic breathing and pursed lip breathing are explained and demonstrated. Positive lifestyle changes are introduced. Following these self-care skills will help in the management of COPD so the patient can stay out of the hospital. Continue Albuterol HFA as needed. Continue Breztri aerosphere 160/9/4.8 mcg 2 puffs BID. Gargle after use. The patient does not know how to accurately administer the inhalers. Today, the patient was shown how to take these medications. The proper technique for delivering these medications was instructed. The patient expressed a clear understanding and demonstrated back how to use these medications. Without the proper technique, the patient will not reap the benefits of these medications as the contents will not reach the lower airways as intended to be. Adherence to therapy is advocated. Nonadherence may lead to treatment failure, further progression of the condition, and other complications. Hospitals admissions are often the result of individuals not taking prescription medications accurately. Alternatively, greater adherence to medication regimens have shown to lower rates of hospitalization and decrease total medical costs in patients with chronic medical conditions. Advocated influenza vaccination annually and pneumonia vaccination ABENA. Advocated weight loss through diet and exercise. Patient's ideal body weight according to height and gender is up to 150 lbs. Encouraged patient to adjust caloric intake to maintain/achieve ideal body weight, emphasizing on fruits, vegetables, whole grains, and fat-free or low-fat products. These include lean meats, poultry, fish, beans, eggs, and nuts and foods that are low in saturated fats, trans-fats, cholesterol, salt (sodium), and glycemic index. Stressed the importance of regular exercise up to the patient's capacity limits. In this case, we recommend 20 min daily walking, 2 days a week of resistance training. Patient to monitor BP daily and bring records to PCP for further management. Follow-up: 1 week after PFT [email or web address] Not available 04/10/2024 09:52:08 07/05/2024 07/05/2024 01/03/2023: TSH/FT4/CBC/CMP: WNL TG 174, LDL 107 A1C 6.3 07/07/2023: TG 171 A1C 6.6 VIT D 17.2 10/21/2023: HCT 47.3 Gluc 113 TG 180, LDL 115 A1C 6.3 VIT D 30.8 06/21/2024: TG 195, LDL 101 A1C 6.8 VIT D 27.4 Not available 06/27/2024 15:08:15 11/08/2024 11/08/2024 01/03/2023: TSH/FT4/CBC/CMP: WNL TG 174, LDL 107 A1C 6.3 07/07/2023: TG 171 A1C 6.6 VIT D 17.2 10/21/2023: HCT 47.3 Gluc 113 TG 180, LDL 115 A1C 6.3 VIT D 30.8 06/21/2024: TG 195, LDL 101 A1C 6.8 VIT D 27.4 11/07/2024: Chol 203, LDL 107 VIT D 28.6, A1C 6.5 Not available 11/09/2024 22:07:41 01/31/2025 01/31/2025 01/03/2023: TSH/FT4/CBC/CMP: WNL TG 174, LDL 107 A1C 6.3 07/07/2023: TG 171 A1C 6.6 VIT D 17.2 10/21/2023: HCT 47.3 Gluc 113 TG 180, LDL 115 A1C 6.3 VIT D 30.8 06/21/2024: TG 195, LDL 101 A1C 6.8 VIT D 27.4 11/07/2024: Chol 203, LDL 107 VIT D 28.6, A1C 6.5 01/28/2205: TG 195 A1C 6.3 Not available 01/31/2025 09:30:25 Plan of Treatment Reminders Order Date Submit Date Provider Last Modified By Organization Details Last Modified Time Details Appointments Any 15 2024 08:45A Calderon masterson MD Not available Not available Not available Lab lipid panel, serum [address], [address] [place], [address], 01/31/2025 15:22:14 CMP, serum or plasma [address], [address] [place], [address], 01/31/2025 15:22:14 CBC w/ auto diff [address], [address] [place], [address], 01/31/2025 15:22:15 TSH + free T4, serum [address], [address] [place], [address], 01/31/2025 15:22:15 vitamin D, 25-hydr oxy, total, serum 2024 025 [email or web address] [address] [facility], 2022 Cristin Francis, [address], [address], 01/31/2025 15:22:16 microal bumin, urine [address], [address] [place], [address], 01/31/2025 15:22:14 HbA1c (hemogl obin A1c), blood [address], [address] [place], [address], 01/31/2025 15:22:14 lipid panel, serum 2023 024 J[facility], [address] [place], [address], 01/30/2025 01:58:27 CMP, serum or plasma 2023 024 [facility], [address] [place], [address], 01/30/2025 01:58:27 CBC w/ auto diff 2023 024 [facility], [address] [place], [address], 01/30/2025 01:58:26 TSH + free T4, serum 2023 024 [facility], [address] [place], [address], 01/30/2025 01:58:27 vitamin D, 25-hydr oxy, total, serum 2023 [address] [place] [facility], [address] Cristin Francis, [address] [address], [place], [address], 01/30/2025 01:58:27 microal bumin, urine [address] [place] [address], [address] [place], [address], 11/08/2024 10:40:37 HbA1c (hemogl obin A1c), blood 2023 024 [facility], [address] [place], [address], 01/30/2025 01:58:27 lipid panel, serum 2023 024 [facility], [address] [place], [address], 11/19/2024 11:42:40 CMP, serum or plasma 2023 024 [facility], [address] [place], [address], 11/19/2024 11:42:40 CBC w/ auto diff 2023 024 [facility], [address] [place], [address], 11/19/2024 11:42:40 TSH + free T4, serum 2023 024 [facility], [address] [place], [address], 11/19/2024 11:41:21 vitamin D, 25-hydr oxy, total, serum 2023 024 [place] [facility], [address] Cristin Francis, [address] [address], [place], [address], 11/19/2024 11:42:41 microal bumin, urine 2023 024 [facility], [address] [place], [address], 11/19/2024 11:42:41 HbA1c (hemogl obin A1c), blood 2023 024 [facility], [address] [place], [address], 11/19/2024 11:42:40 lipid panel, serum 2023 024 [facility], [address] [place], [address], 06/22/2024 09:29:19 CMP, serum or plasma 2023 024 [facility], [address] [place], [address], 06/22/2024 09:29:20 CBC w/ auto diff 2023 024 [facility], [address] [place], [address], 06/22/2024 09:29:20 TSH + free T4, serum 2023 024 [facility], [address] [place], [address], 06/22/2024 09:29:20 vitamin D, 25-hydr oxy, total, serum 2023 024 [place] [facility], [address] Cristin Francis, [address], [place], [address], 06/22/2024 09:29:20 microal bumin, urine [address] [place] [address], [address] [place], [address], 08/28/2024 08:37:56 HbA1c (hemogl obin A1c), blood [address] [place] [address], [address] [place], [address], 08/28/2024 08:37:56 Referral pulmono logist referra l - Please call patient to sara e an appoint ment. Thank you. 2024 025 [facility] Michelle Dewitt [facility], [address] [facility] , [address], [place], [address], 02/07/2025 11:45:35 diabeti c ophthal mology referra l - Please call patient to sara e an appoint ment. Thank you. [address] [facility], [address] [place], [address], 02/07/2025 11:20:46 podiatr ist referra l - Please call patient to sara e an appoint ment. Thank you. 2024 025 [email or web address] Yvan Bhandari DPM, [address] [facility], [address], [place], [address], 02/07/2025 10:36:00 pulmono logist referra l 2023 024 Michelle Dewitt [facility]-, [address] [facility] , [address], [place], [address], 11/13/2024 17:53:05 diabeti c ophthal mology referra l - Please call patient to schedul e. 2023 024 [email or web address] [facility], [address] [place], [address], 01/16/2025 09:50:20 podiatr ist referra l - Please call patient to schedul e. 2023 024 [email or web address] Yvan Bhandari DPM, [address], [address], [place], [address], 01/16/2025 09:50:20 pain managem ent referra l 2023 024 [email or web address] [facility], [address], [address], [place], [address], 01/29/2025 10:01:40 pulmono logist referra l 2023 024 [email or web address] Michelle Dewitt [facility]-, [address] [facility] , [address], [place], [address], 10/03/2024 16:57:19 pulmono logist referra l 2023 024 [email or web address] Papo Garza MD, [address] [facility] , [address], [place], [address], 10/03/2024 16:57:20 diabeti c ophthal mology referra l 2023 024 [email or web address] Not available 11/13/2024 17:53:43 podiatr ist referra l 2023 024 [email or web address] Yvan Bhandari DPM, [address], [address], [place], [address], 11/13/2024 17:53:55 cardiol ogist referra l 2023 024 JESS Waller MD, [address] [facility] , [place], [address], 10/31/2024 11:49:10 pulmono logist referra l 2023 024 [email or web address] Arun Capone MD, [address] [place], [address], 05/30/2024 11:08:30 pulmono logist referra l 2023 024 [email or web address] Papo Garza MD, [address] [facility] , [facility] [address], [place], [address], 07/30/2024 15:44:36 diabeti c ophthal mology referra l 2023 024 [email or web address] Not available 08/28/2024 08:38:58 podiatr ist referra l 2023 024 [email or web address] Yvan Bhandari DPM, [address] [facility] [address], [place], [address], 09/11/2024 16:39:37 Procedures None recorde d. Surgeries None recorde d. Imaging MAMMO, screeni ng, digital , bilater al - Please call patient to schedul e. [address] ([facility]), [address] [place], [address], 01/31/2025 10:39:03 DEXA, axial skeleto n - Please call patient to schedul e. 2024 025 [facility] ([facility]), [address] [place], [address], 01/31/2025 10:45:33 MAMMO, screeni ng, digital , bilater al 2023 024 [email or web address] [facility], [address] [facility] [address], [place], [address], 11/08/2024 15:43:59 DEXA, axial skeleto n 2023 024 [email or web address] [facility], [address] [facility] [address], [place], [address], 11/08/2024 15:44:34 MAMMO, screeni ng, digital , bilater al 2023 024 [facility], [address] [facility] [address], [place], [address], 07/30/2024 11:07:15 DEXA, axial skeleto n 2023 024 [email or web address] [facility], [address] [facility] [address], [place], [address], 01/07/2025 15:05:58 DEXA, axial skeleto n 2023 024 [email or web address] [facility], [address] [facility] [address], [place], [address], 08/28/2024 08:38:22 Medication Orders choleca lcifero l (vitami n D3) 1,250 mcg (50,000 unit) capsule 2023 024 marcus [facility], [address], [place], [address], 01/31/2025 09:40:38 icosape nt ethyl 1 gram capsule 2023 024 yue laRoxi [facility], [address], [place], [address], 11/08/2024 10:34:22 albuter ol sulfate HFA 90 mcg/act uation aerosol inhaler 2023 024 JESS [facility], [address], [place], [address], 04/10/2024 09:44:33 Breztri Aerosph ere 160 mcg-9mc g-4.8mc g/actua tion HFA aerosol inhaler 2023 024 [facility], [address] , [place], [address], 04/10/2024 09:44:33 Patient TargetsNo targets recorded. Patient Instructions Encounter Date Encounter Id Patient Instructions Last Modified By Organization Details Last Modified Time 03/01/2024 [id number] dementia rating scale-2* [email or web address] Not available 03/01/2024 10:00:57 depression screening* [email or web address] Not available 03/07/2024 17:58:18 alcohol misuse* [email or web address] 2 Not available 03/07/2024 17:58:18 multi-dimensiona l health assessment questionnaire* [email or web address] Not available 03/01/2024 10:14:55 Personalized [facility] lt Plan and Screening Recommendations Advance Directives - Do you have one? No Advance Directives - Do we have your advance directive on file in your health record? Primary Prevention/Interven tion (prevents or decreases the chance of common diseases from occurring) Smoking Risk: Smoker Refer to attached smoking cessation handouts Refer to attached handouts and prescription will be sent to pharmacy Continue to consider stopping smoking and call if we can assist you Alcohol Misuse Screening: Negative Weight: Appropriate Overwei ght continue your current weight loss efforts try to lose 5% of your body weight try to lose 10% of your body weight Physical activity: Need more exercise/physical activity decrease sitting time to no more than 5hr/day Nutrition: Good Average Fall Risk (screened today): Low Vaccines Pneumococcal: Influenza: Your next one in the fall of this year Chronic Disease Risks Stroke: Low Risk Intermediate Risk I have no recommendations Act naeem diagnosis, Continue current treatment plan Heart Attack: Low risk Intermediate Risk I have no recommendations Act naeem diagnosis, Continue current treatment plan Clogging of the Arteries: Low risk Intermediate Risk I have no recommendations Act naeem diagnosis, Continue current treatment plan Diabetes: High Risk Active diagnosis, Continue current treatment plan Secondary Prevention/Interven tion (detects treatable diseases before they may cause symptoms, disability, or ) Breast Cancer Screening with mammogram: Cervical/Uterine/Ov apryl Cancer Screening: No screening necessary Osteoporosis Screening: Your next DEXA in: Ordered Date Screening Last Performed: _N/A Colon Cancer Screening: Colonoscopy Fecal Occult Blood Cologuard (DNA stool test) Date Screening Last Performed: 04/2021 Eye Disease Screening: Dementia Risk: Low I have no recommendations Depression Screening: Negative [email or web address] Not available 03/01/2024 10:50:21 04/10/2024 [id number] complete PFT w/ post bronchodilator spirometry* [email or web address] Not available 04/17/2024 08:56:31 Reason for Referral Diabetic Ophthalmology Refer ral for Type 2 diabetes mellitus without complication Referring Physician: Denia Lee Internal Medicine, Encounter Date: 03/01/2024 Granulizing Machine Operator Referral for Type 2 diabetes mellitus without complication Referring Physician: Juan Tracy Medicine, Encounter Date: 03/01/2024 Pot Press Operator Referral for A sthma Referring Physician: Juan Tracy Medicine, Encounter Date: 03/01/2024 Pot Press Operator Referral for O bstructive sleep apnea syndrome Referring Physician: Juan Tracy, Encounter Date: 03/01/2024 Diabetic Ophthalmology Refer ral for Type 2 diabetes mellitus without complication Referring Physician: Denia Lee Internal Medicine, Encounter Date: 07/05/2024 Granulizing Machine Operator Referral for Type 2 diabetes mellitus without complication Referring Physician: Juan Tracy, Encounter Date: 07/05/2024 Pot Press Operator Referral for A sthma Referring Physician: Juan Tracy, Encounter Date: 07/05/2024 Pot Press Operator Referral for O bstructive sleep apnea syndrome Referring Physician: Juan Tracy, Encounter Date: 07/05/2024 Manager Cardiology Referral for Co ronary arteriosclerosis Referring Physician: Denia Lee Internal Medicine, Encounter Date: 07/05/2024 Pain Management Referral for Low back pain Referring Physician: Denia Lee Internal Medicine, Encounter Date: 07/05/2024 Diabetic Ophthalmology Refer ral for Type 2 diabetes mellitus without complication Please call patient to schedule. Referring Physician: Denia Lee Internal Medicine, Encounter Date: 11/08/2024 Granulizing Machine Operator Referral for Type 2 diabetes mellitus without complication Please call patient to schedule. Referring Physician: Denia Lee Internal Medicine, Encounter Date: 11/08/2024 Pot Press Operator Referral for A sthma Referring Physician: Denia Lee Internal Medicine, Encounter Date: 11/08/2024 Diabetic Ophthalmology Refer ral for Type 2 diabetes mellitus without complication Please call patient to schedule an appointment. Thank you. Referring Physician: Denia Lee Internal Medicine, Encounter Date: 01/31/2025 Granulizing Machine Operator Referral for Type 2 diabetes mellitus without complication Please call patient to schedule an appointment. Thank you. Referring Physician: Denia Lee Internal Medicine, Encounter Date: 01/31/2025 Pot Press Operator Referral for A sthma Please call patient to schedule an appointment. Thank you. Referring Physician: Juan Tracy Medicine, Encounter Date: 01/31/2025 Results Created Date Observation Date Name Description Value Unit Range Abnormal Flag Note LastModifiedBy Organization Detail LastModifiedTime 03/28/20 24 03/28/2024 CT, chest , w/o contr ast No observ ation record ed. JESS [facility] [address], [place], [address], 03/28/2024 10:09:34 04/03/20 24 06/11/2019 home sleep study No observ ation record ed. BARCODE Not Available 2023 10:47:58 Result Notes None recorded. Problems Name Problem SNOMED Code Status Onset Date Resolution Date Notes Provider Name and Address Organization Details Recorded Time Type 2 diabetes mellitus without complicat ion 465891670 Active 2022 Denia hamm MD [address], [address], [place], [address] , myLINGO 3 08:45:13 Smoker 67321536 Active 2022 Denia hamm MD [address], [address], [place], [address] , myLINGO 3 08:47:20 Mild chronic obstructi ve pulmonary disease 312805757 Active 2023 Arun Capone MD [address], [address], [place], [address] , myLINGO 4 09:39:30 Asthma 753899223 Active 2023 Denia hamm MD [address], [address], [place], [address] , myLINGO 4 15:06:36 Pain of left shoulder joint 09363351746 534551 Active 2023 Denia hamm MD [address], [address], [place], [address] , myLINGO 4 15:06:36 Low back pain 775921690 Active 2023 Denia hamm MD [address], [address], [place], [address] , myLINGO 4 15:06:36 Deficienc y of vitamin D3 121044464 Active 2023 Deena Kee MA null, myLINGO 4 16:29:37 Chronic obstructi ve pulmonary disease 62764685 Active 2018 Not Available [facility] 3 04:49:45 Body mass index 30+ - obesity 963136890 Active 2018 Not Available [facility] 3 04:49:45 Anxiety state 611895576 Active Not Available [facility] 3 04:49:45 Gastroeso phageal reflux disease 740920230 Active Not Available [facility] 3 04:49:45 Ankle pain 859333522 Completed Not Available [facility] 3 04:49:45 Abnormal weight loss 244864055 Completed Not Available [facility] 3 04:49:45 Pain in thoracic spine 474140091 Completed Not Available [facility] 3 04:49:46 Malaise and fatigue 287202669 Completed Not Available [facility] 3 04:49:46 Rib pain 214807204 Completed Not Available [facility] 3 04:49:46 Chest pain 33295488 Completed Not Available [facility] 3 04:49:46 Bronchiti s 41616335 Completed Not Available [facility] 3 04:49:46 Vitamin D deficienc y 19263575 Active Not Available [facility] 3 04:49:46 Multiple nodules of lung 705364237 Active 2020 Not Available [facility] 3 04:49:47 Shoulder pain 96083633 Completed Not Available [facility] 3 04:49:47 Coronary arteriosc lerosis 79840963 Active 2021 Not Available [facility] 3 04:49:47 Hyperlipi demia 59459612 Active Not Available [facility] 3 04:49:47 Essential hypertens ion 00399082 Active Not Available [facility] 3 04:49:48 Displacem ent of thoracic intervert ebral disc 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 y 36335126 Completed Not Available [facility] 3 04:49:48 Obstructi ve sleep apnea syndrome 82503360 Active 2018 Not Available [facility] 3 04:49:48 Ex-smoker 8190376 Active 2019 Not Available [facility] 04:49:49 Notes:Medical History: Anxie ty 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% Nicotine use Mild COPD Right pulmonary nodules RML pneumatocele LLL basal atelectasis Erythrocytosis Obesity with mild OSAHS, AHI = 11, 06/11/19, CPAP intolerant Hypertension Mixed hyperlipidemia T2DM CAD DAVE Umbilical hernia Hepatomegaly Diverticulosis 50% 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 Procedures Surgical History Date Name Laterality Status Provider Name and Address Organization Details Recorded Time 03/01/20 Medicare Wellness CPT Code, Initial completed Agustin Felipe LPN [facility] 03/01/2024 09:49:26 01/17/20 24 total shoulder replacement completed HARLEY Rivera [facility] 03/01/2024 09:37:11 09/14/20 Cardiac Stent Placement completed Not Available [facility] 01/19/2023 04:41:57 Foot Surgery completed Not Available [facility] 01/19/2023 04:41:57 completed Not Available [facility] 0 01/19/2023 04:41:57 Elbow arthroscopy/damien jackie completed Not Available [facility] 01/19/2023 04:41:57 other completed Not Available [facility] 11/2022 04:41:57 Dental completed Not Available [facility] 11/2022 04:41:57 Imaging Results Imaging Date Name Status LastModified by Organiz ation Details LastModified Time 03/28/2024 CT, chest, w/o contrast active [facility] 2022 Waldemar Aranda [facility], [place], [address], 03/28/2024 10:09:34 06/11/2019 home sleep study completed [facility] Information not available 04/03/2024 10:47:58 Procedure Notes None recorded. Medical Equipment None Reported. Allergies No known drug allergies Medications Name Sig Start Date Stop Date Status Note LastModified by Organization Details LastModified Time carisopro dol 350 mg tablet take 1 po prn q 8 active Not Available Not Available No t Available celecoxib 200 mg capsule 03/01 completed Not Available Not Available Not Available cyclobenz aprine 10 mg tablet TAKE 1 TABLET AT BEDTIME NEEDED. NO ALCOHOL OR DRIVING WITH THIS OR OTHER SEDATING MEDICATI ONS. active Not Available Not Available No t Available amoxicill in 500 mg capsule TAKE ONE CAPSULE BY MOUTH THREE TIMES DAILY UNTIL ALL TAKEN 08/10 completed Not Available Not Available Not Available atorvasta tin 40 mg tablet TAKE 1 TABLET EVERY DAY 07/05 completed Not Available Not Available Not Available metformin 500 mg tablet TK 1 T PO BID active Not Available Not Available No t Available hydrocodo ne 7.5 mg-ibupro fen 200 mg tablet active Not Available Not Available No t Available atorvasta tin 80 mg tablet Take 1 tablet every day by oral route. active Not Available Not Available No t Available prednison e 10 mg tablet take 40 x3, 30 x3, 20x3, 10 x3 active Not Available Not Available No t Available clindamyc in HCl 300 mg capsule TAKE 1 CAPSULE BY MOUTH EVERY 8 HOURS FOR 10 DAYS active Not Available Not Available No t Available albuterol sulfate 2.5 mg/3 mL (0.083 %) solution for nebulizat ion every 4 hours as needed active Not Available Not Available No t Available triazolam 0.25 mg tablet TAKE 1 TABLET BY MOUTH 1 HOUR BEFORE DENTAL SURGERY. BRING OTHER TABLET WITH YOU TO THE APPOINTM ENT 08/10 completed Not Available Not Available Not Available azithromy kirstie 250 mg tablet TAKE 2 TABLETS BY MOUTH FOR 1 DAY THEN TAKE 1 TABLET BY MOUTH DAILY FOR 4 DAYS 07/12 completed Not Available Not Available Not Available pravastat in 40 mg tablet 05/11 completed now on atorvast atin Not Available Not Available Not Available ibuprofen 800 mg tablet TK 1T PO EVERY 8HRS PRN active Not Available Not Available No t Available ranitidin e 300 mg tablet Take 1 tablet every day by oral route. 03/29 completed Not Available Not Available Not Available hydrocodo ne 5 mg-acetam inophen 325 mg tablet TAKE 1 TO 2 TABLETS BY MOUTH EVERY 4 TO 6 HOURS NEEDED FOR PAIN 03/01 completed Not Available Not Available Not Available minocycli ne 100 mg capsule TAKE 1 CAPSULE BY MOUTH TWICE DAILY FOR 14 DAYS active Not Available Not Available No t Available meloxicam 15 mg tablet TK 1 T PO QD 05/20 completed Not Available Not Available Not Available lisinopri l 20 mg tablet TAKE 1 TABLET EVERY DAY active Not Available Not Available No t Available prednison e 20 mg tablet TK 2 TS PO QD 01/31 completed Not Available Not Available Not Available verapamil ER (SR) 180 mg tablet,ex tended release TAKE 1 TABLET EVERY DAY active Not Available Not Available No t Available promethaz ine 6.25 mg-codein e 10 mg/5 mL syrup Take 5 mL every 6 hours by oral route. active Not Available Not Available No t Available acetamino phen 300 mg-codein e 30 mg tablet TAKE 1 TABLET BY MOUTH FOUR TIMES DAILY NEEDED FOR PAIN 08/27 completed Not Available Not Available Not Available clopidogr el 75 mg tablet Take 1 tablet every day by oral route for 90 days. 10/27 completed Not Available Not Available Not Available sulfameth oxazole 800 mg-trimet hoprim 160 mg tablet 03/29 completed Not Available Not Available Not Available omeprazol e 40 mg capsule,d elayed release Take 1 capsule every day by oral route. 03/29 completed Not Available Not Available Not Available aspirin 81 mg tablet,de layed release TAKE 1 TABLET BY MOUTH TWICE DAILY active Not Available Not Available No t Available tramadol 50 mg tablet 03/29 completed Not Available Not Available Not Available acetamino phen 500 mg tablet TAKE 2 TABLETS BY MOUTH EVERY 6 HOURS 04/01 completed Not Available Not Available Not Available quinapril 40 mg tablet TAKE 1 TABLET EVERY DAY 03/25 completed Not Available Not Available Not Available Kenalog 40 mg/mL suspensio n for injection Take 1 mL every day by injectio n route. 10/31 completed Not Available Not Available Not Available meloxicam 7.5 mg tablet Take 1 tablet every day by oral route as needed for 30 days. 03/01 completed Not Available Not Available Not Available oxycodone -acetamin ophen 5 mg-325 mg tablet 04/11 completed Not Available Not Available Not Available alprazola m 0.5 mg tablet TK 1 T PO 3 H BEFOR MRI MAY REPEAT IF NEEDED active Not Available Not Available No t Available amoxicill in 875 mg tablet TK 1 T PO BID TAT active Not Available Not Available No t Available alprazola m 0.25 mg tablet Take 1 tablet 3 times a day by oral route as needed. active take 1-2 before MRI Not Available Not Available Not Available famotidin e 20 mg tablet TK 1 T PO QD active Not Available Not Available No t Available Kenalog 10 mg/mL suspensio n for injection In office injectio n administ ered by the provider 12/27 completed ND: [id number] 03-10 Not Available Not Available Not Available benzonata te 100 mg capsule Take 1 capsule 3 times a day by oral route. active Not Available Not Available No t Available hydrocodo ne 7.5 mg-acetam inophen 325 mg tablet TK 1-2 TS PO EVERY 4-6 HOURS NEEDED active Not Available Not Available No t Available cephalexi n 500 mg capsule TK 1 C PO TID FOR 10 DAYS 05/31 completed Not Available Not Available Not Available dexametha sone 4 mg tablet 08/10 completed Not Available Not Available Not Available lidocaine 5 % topical patch APPLY 1 PATCH EXTERNAL LY TO THE SKIN EVERY DAY. MAY WEAR UP TO 12 HOURS 03/01 completed Not Available Not Available Not Available promethaz ine 25 mg tablet TAKE 1 TABLET BY MOUTH EVERY 4 TO 6 HOURS NEEDED FOR PAIN OR NAUSEA 08/10 completed Not Available Not Available Not Available nicotine 21 mg/24 hr daily transderm al patch 05/31 completed Not Available Not Available Not Available hydrochlo rothiazid e 12.5 mg capsule TAKE 1 CAPSULE EVERY DAY active Not Available Not Available No t Available nystatin- triamcino lone 100,000 unit/g-0. 1 % topical cream APPLY TO THE AFFECTED AREA(S) BY TOPICAL ROUTE 2 TIMES PER DAY IN THEMORNI NG AND EVENING PRN active Not Available Not Available No t Available etodolac 400 mg tablet Take 1 tablet twice a day by oral route for 30 days. active Not Available Not Available No t Available monteluka st 10 mg tablet TAKE 1 TABLET EVERY DAY active Not Available Not Available No t Available hydrocodo ne 5 mg-acetam inophen 500 mg tablet active Not Available Not Available Not Available pravastat in 20 mg tablet TAKE 1 TABLET DAILY active Not Available Not Available No t Available gabapenti n 100 mg capsule TK 1 C PO TID 05/30 completed Not Available Not Available Not Available estradiol 0.5 mg tablet TK 1 T PO D 11/29 completed Not Available Not Available Not Available ergocalci ferol (vitamin D2) 1,250 mcg (50,000 unit) capsule Take 1 capsule every week by oral route. active Not Available Not Available No t Available ibuprofen 600 mg tablet TAKE 1 TABLET BY MOUTH EVERY 6 HOURS NEEDED FOR PAIN 05/11 completed Not Available Not Available Not Available oxycodone -acetamin ophen 7.5 mg-325 mg tablet TAKE 1 TABLET BY MOUTH EVERY 6 HOURS NEEDED FOR DENTAL PAIN 08/10 completed Not Available Not Available Not Available verapamil 80 mg tablet Take 1 tablet twice a day by oral route. active Not Available Not Available No t Available levofloxa kirstie 750 mg tablet TK 1 T PO QD 05/31 completed Not Available Not Available Not Available methylpre dnisolone 4 mg tablets in a dose pack TK UTD 03/29 completed Not Available Not Available Not Available albuterol sulfate HFA 90 mcg/actua tion aerosol inhaler Inhale 1 puff every 4 hours by inhalati on route as needed for 30 days. active Not Available Not Available No t Available fluticaso ne propionat e 50 mcg/actua tion nasal spray,mag pension [place] 2 sprays every day by intranas al route. 10/31 completed Not Available Not Available Not Available glipizide 5 mg tablet TAKE 1 TABLET EVERY DAY active Not Available Not Available No t Available naproxen 500 mg tablet TAKE 1 TABLET BY MOUTH EVERY 12 HOURS NEEDED FOR PAIN active Not Available Not Available No t Available progester one micronize d 100 mg capsule 11/29 completed Not Available Not Available Not Available amoxicill in 875 mg-potass ium clavulana te 125 mg tablet TAKE 1 TABLET BY MOUTH EVERY 12 HOURS FOR 10 DAYS 05/11 completed Not Available Not Available Not Available oxycodone 5 mg tablet 03/01 completed Not Available Not Available Not Available neomycin- polymyxin -hydrocor t 3.5 mg-10,000 unit/mL-1 % ear drops,mag p 04/11 completed Not Available Not Available Not Available rosuvasta tin 40 mg tablet Take 1 tablet every day by oral route. 05/11 completed never got Not Available Not Available Not Available chlorhexi dine gluconate 0.12 % mouthwash RINSE WITH 15 ML BY MOUTH FOR 30 SECONDS AND EXPECTOR ATE TWICE DAILY FOR 2 WEEKS 08/10 completed Not Available Not Available Not Available vitamin E 2 tabs daily 07/12 completed Not Available Not Available Not Available lidocaine (PF) 10 mg/mL (1 %) injection solution In office injectio n administ ered by the provider 12/27 completed [facility]: [id number] Not Available Not Available Not Available Advair HFA 115 mcg-21 mcg/actua tion aerosol inhaler active Not Available Not Available Not Available fenofibra te nanocryst allized 145 mg tablet TAKE 1 TABLET BY MOUTH EVERY DAY 05/27 completed Changed to Vascepa Not Available Not Available Not Available Symbicort 160 mcg-4.5 mcg/actua tion HFA aerosol inhaler Inhale 2 puffs twice a day by inhalati on route as directed for 30 days. active Not Available Not Available No t Available cholecalc iferol (vitamin D3) 1,250 mcg (50,000 unit) capsule Take 1 capsule every week by oral route. 01/31 completed Not Available Not Available Not Available Brilinta 90 mg tablet 01/11 completed Not Available Not Available Not Available OneTouch Verio test strips 04/01 completed Not Available Not Available Not Available icosapent ethyl 1 gram capsule Take 2 capsules twice a day by oral route for 90 days. 11/08 completed Not Available Not Available Not Available Spiriva Respimat 2.5 mcg/actua tion solution for inhalatio n Inhale 2 puffs every day by inhalati on route as directed for 30 days. 01/11 completed Not Available Not Available Not Available Spiriva Respimat 12/27 completed Given by pulmonar y next apt 08/03/19 Not Available Not Available Not Available Incruse Ellipta 62.5 mcg/actua tion powder for inhalatio n INL 1 PUFF PO QD UTD 08/23 completed patient states powder stays in throat, stopped using medicati on Not Available Not Available Not Available Incruse Ellipta 05/31 completed Michelle Osorio [employer] 04/24/19 , f/u 06/01/19 Not Available Not Available Not Available OneTouch Verio Flex Meter U UTD TO CHECK BLOOD SUGARS BID AND PRN 04/01 completed Not Available Not Available Not Available Breztri Aerospher e 160 mcg-9mcg- 4.8mcg/ac tuation HFA aerosol inhaler Inhale 2 puffs twice a day by inhalati on route as directed for 30 days. 2023 active Not Available Not Available Not Avai lable Vitals Date Recorded Body height Body mass index (BMI) Body weight Body temperature Heart rate Systolic blood pressure Diastolic blood pressure Provider Name and Address Organization Details Last Updated DateTime 4 172.72 cm 41.2 kg/m2 822920. 53 g 97.8 [degF] 84 /min 114 mm[Hg] 72 mm[Hg] HARLEY Rivera [employer] [facility] [employer] 4 09:39:05 Date Recorded Pain severity - 0-10 verbal numeric rating [Score] - Reported Provider Name and Address Organization Details Last Updated DateTime 03/01/2024 2 Agustin Felipe LPN [place] [employer] [facility] [employer] 03/01/2024 09:50:02 Date Recorded Body height Body mass index (BMI) Body weight Body temperature Heart rate Oxygen saturation Oxygen saturation in Arterial blood by Pulse oximetry Systolic blood pressure Diastolic blood pressure Provider Name and Address Organization Details Last Updated DateTime 4 172.72 cm 41.4 kg/m2 363183. 12 g 98.4 [degF] 90 /min 96 % 96 % 124 mm[Hg] 70 mm[Hg] Bisi Mcgregor CMA [employer] [facility] [employer] 4 09:12:27 Date Recorded Heart rate Respiratory rate Provider N michael and Address Organization Details Last Updated DateTime 04/10/2024 90 /min 15 /min Arun Capone MD [address], [facility] [address], [place], [address], [employer] [facility] [employer] 04/10/2024 09:51:23 Date Recorded Body height Body mass index (BMI) Body weight Body temperature Heart rate Oxygen saturation Oxygen saturation in Arterial blood by Pulse oximetry Pain severity - 0-10 verbal numeric rating [Score] - Reported Systolic blood pressure Diastolic blood pressure Provider Name and Address Organization Details Last Updated DateTime 4 172.72 cm 41.1 kg/m2 526002. 94 g 98.4 [degF] 85 /min 95 % 95 % 5 124 mm[Hg] 68 mm[Hg] Veronika Fritz MA [facility] [employer] [facility] 4 09:38:47 Date Recorded Body height Body mass index (BMI) Body weight Body temperature Heart rate Systolic blood pressure Diastolic blood pressure Provider Name and Address Organization Details Last Updated DateTime 4 172.72 cm 40.1 kg/m2 453210. 39 g 97.4 [degF] 84 /min 120 mm[Hg] 76 mm[Hg] HARLEY Rivera [facility] [employer] [facility] 4 09:57:46 Date Recorded Body height Body mass index (BMI) Body weight Body temperature Oxygen saturation Oxygen saturation in Arterial blood by Pulse oximetry Heart rate Pain severity - 0-10 verbal numeric rating [Score] - Reported Systolic blood pressure Diastolic blood pressure Provider Name and Address Organization Details Last Updated DateTime 5 172.72 cm 38.6 kg/m2 916253. 46 g 98.3 [degF] 96 % 96 % 89 /min 0 122 mm[Hg] 68 mm[Hg] Veronika Fritz MA [facility] [employer] [facility] 5 09:39:30 Social History Question Answer Notes LastModified by Organization Details LastModified Time Tobacco Smoking Status Current Every Day Smoker Veronika Fritz MA [facility] [employer] [facility] 01/31/2025 09:41:30 Do You Have An Advance Directive? No [id number] Information not available 01/19/2023 What Is Your Level Of Alcohol Consumption? None [id number] Information not available 01/19/2023 What Is Your Code Status? Full Code [id number] Information not available 01/19/2023 In The 14 Days Before Symptom Onset, Have You Had Close Contact With A Laboratory-confi rmed COVID-19 While That Case Was Ill? No [id number] Information not available 01/19/2023 In The 14 Days Before Symptom Onset, Have You Had Close Contact With A Person Who Is Under Investigation For COVID-19 While That Person Was Ill? No [id number] Information not available 01/19/2023 Are You Currently Employed? No [email or web address] Information not available 03/01/2024 What Type Of Diet Are You Following? DIABETIC [email or web address] Information not available 03/01/2024 Do You Or Have You Ever Used E-cigarettes Or Vape? Never Used Electronic Cigarettes [id number] Information not available 01/19/2023 What Is The Highest Grade Or Level Of School You Have Completed Or The Highest Degree You Have Received? [id number].[id number] [id number] Information not available 01/19/2023 Have There Been Any Changes To Your Family Or Social Situation? No [id number] Information not available 01/19/2023 What Is The Fluoride Status Of Your Home? Fluoridated [id number].[id number] [id number] Information not available 01/19/2023 Are There Any Guns Present In Your Home? No [id number].[id number] [id number] Information not available 01/19/2023 Do You Use Insect Repellent Routinely? No MIGRATION.[id number] [id number] Information not available 01/19/2023 [id number] Information not available 01/19/2023 Are You Able To Care For Yourself? Yes [email or web address] Information not available 03/01/2024 Are You Blind Or Do Yo Have Difficulty Seeing? No [email or web address] Information not available 03/01/2024 Are You Deaf Or Do You Have Serious Difficulty Hearing? No Information not available 03/01/2024 Are You Following A Low Salt Diet? No [email or web address] Information not available 03/01/2024 Do You Have A Medical Power Of Returning Officer? No [id number] Information not available 01/19/2023 What Was The Date Of Your Most Recent Tobacco Screening? 01/31/2025 [email or web address] Information not available 01/31/2025 Do You Have Any Pets? Yes Two Small Dogs [email or web address] Information not available 03/01/2024 What Is Your Relationship Status? Other Engaged [email or web address] Information not available 03/01/2024 Do You Use Your Seat Belt Or Car Seat Routinely? Yes [id number] Information not available 01/19/2023 Do You Have Smoke And Carbon Monoxide Detectors In Your Home? Yes [id number] [id number] Information not available 01/19/2023 At What Age Did You Start Smoking Tobacco? 16 [email or web address].[id number] [id number] Information not available 01/19/2023 Are You Passively Exposed To Smoke? Yes [email or web address].[id number] [id number] Information not available 01/19/2023 Do You Or Have You Ever Used Smokeless Tobacco? Never Used Smokeless Tobacco [id number].[id number] [id number] Information not available 01/19/2023 Are There Any Smokers In Your House? Yes MIGRATION.[id number] [id number] Information not available 01/19/2023 How Much Tobacco Do You Smoke? 1 PPD Information not available 03/01/2024 What Types Of Sporting Activities Do You Participate In? None [id number].0301 [id number] Information not available 01/19/2023 Do You Feel Stressed (tense, Restless, Nervous, Or Anxious, Or Unable To Sleep At Night)? [id number] [email or web address] Information not available 03/01/2024 Do You Use Any Illicit Or Recreational Drugs? No MIGRATION.0301 [id number] Information not available 01/19/2023 Do You Use Sunscreen Routinely? No MIGRATION.0301 [id number] Information not available 01/19/2023 Have You Recently Traveled Abroad? No MIGRATION.0301 [id number] Information not available 01/19/2023 Do You Have Any Dietary Restrictions? Yes Reduce Sugar Information not available 03/01/2024 Do You Or Have You Ever Used Any Other Forms Of Tobacco Or Nicotine? No MIGRATION.0301 [id number] Information not available 01/19/2023 Sex: Female Functional Status Question Answer Note LastModified by Organizat ion Details LastModified Time What is your exercise level? None [id number] Information not available 01/19/2023 Mental Status None recorded. Family History Relationship Description Onset Age of this Age Resolved Age Notes LastModified by Organization Details LastModified Time Father Hypertensive disorder [id number] Not available 01/19/2023 04:42:02 Father Diabetes mellitus [id number] Not available 01/19/2023 04:42:02 Father Myocardial infarction [id number] [id number] Not available 01/19/2023 04:42:02 Mother Hypertensive disorder [id number] Not available 01/19/2023 04:42:02 Sister Hypertensive disorder [id number] Not available 01/19/2023 04:42:02 Brother Hypertensive disorder [id number] Not available 01/19/2023 04:42:02 Father Coronary arterioscler osis [email or web address] Not available 2023 09:37:19 Father Chronic obstructive pulmonary disease [email or web address] Not available 2023 09:44:08 Mother Coronary arterioscler osis [email or web address] Not available 2023 09:37:28 Medical History Condition Response NERVE DISEASE N BLINDNESS N RHEUMATIC FEVER N KIDNEY STONES Y BLADDER PROBLEMS N MRSA N OTHER # 1 N POLIO N LUNG DISEASE/DISORDER Y HISTORY OF DRUG ABUSE N COPD Y RADIATION / CHEMOTHERAPY N Other # 2 N BLOOD DISEASES N EAR OR HEARING PROBLEMS N MUMPS N SHINGLES N DEPRESSION (INCLUDING POST ) N BOWEL PROBLEMS N STROKE/TIA N ULCERS N BENIGN PROSTATIC HYPERPLASIA N MEASLES N HYPOTENSION N MYOCARDIAL INFARCTION N OBESITY N GERD/NAUSEA Y ANEURYSM N URINARY/BLADDER/KIDNEY PROBLEMS N CORONARY ARTERY DISEASE (CAD) Y ADDICTION CONCERNS N Impotence N ENDOMETRIOSIS N USE OF BLOOD THINNERS N SKIN PROBLEMS N GASTROINTESTINAL DISORDER N PERIPHERAL VASCULAR DISEASE N MUSCLE,JOINT OR BONE PROBLEMS N GASTROINTESTINAL BLEEDING N BLOOD CLOTS N ASTHMA Y CATARACTS N ERECTILE DYSFUNCTION N VARICOSITIES N GI PROBLEMS N Low Testosterone N INFERTILITY N AIDS/HIV N CHEMOTHERAPY / RADIATION N LIVER DISEASE N MALE HYPOGONADISM N HYPERTENSION Y Deficiency Y TOURETTE'S N ANXIETY DISORDER Y BLOOD TRANSFUSION N ANEMIA/BLOOD DISORDER N CHRONIC EAR INFECTIONS N BRONCHITIS N TUBERCULOSIS N GLAUCOMA N FOOT PROBLEM N DIVERTICULITIS N SLEEP APNEA Y CHICKENPOX N INFECTIOUS DISEASE N PROSTATE N HEART ARRHYTHMIA N INSOMNIA Y HIGH CHOLESTEROL / HYPERLIPIDEMIA Y EYE PROBLEMS N HYPERTHYROIDISM N EDEMA N CHRONIC PAIN SYNDROME N HYPOTHYROIDISM N CAROTID BLOCKAGE N CONSTIPATION N BACK / NECK PROBLEMS N ATHEROSCLEROSIS N BREAST PROBLEMS N DIALYSIS N ECZEMA N OSTEOPOROSIS N ARTHRITIS N APPENDICITIS N DIABETES, TYPE Y BAD TEETH N ENT N HEARTBURN / REFLUX N AUTISM SPECTRUM DISORDER (ASD) N HEPATITIS / LIVER DISEASE N GOUT N SLEEP DISORDER N ALZHEIMER'S DISEASE N Brain Problems N DEMENTIA N HERPES N SEIZURES/EPILEPSY N HEADACHES/MIGRAINES N VASCULAR DISEASE N PACEMAKER N Blood Disorder N DIZZINESS N HEART DISEASE/HEART PROBLEMS N KIDNEY DISEASE N MULTIPLE SCLEROSIS N CANCER: SPECIFY N CARDIAC ARRHYTHMIA N ATRIAL FIBRILLATION N Gall Stones N PULMONARY EMBOLISM N AUTOIMMUNE DISEASE N Gynecological History Statement/Question Response How many live births 1 Date of Last Colonoscopy Date of Last Mammogram Date of LMP Most Recent Bone Density Date of Last Pap Current Control Method Menopause Obstetrics History GPAL:G 1 P 1 0 0 1 Type Value Multiple Births 0 Full Term 1 Induced 0 Spontaneous 0 Premature 0 Living 1 Ectopics 0 Total 1 Immunizations Vaccine Type Date Status Note Provider Nam e and Address Organization Details Recorded Time Influenza, split virus, quadrivalent, PF 3 completed Narcisa Lozoya RMA null, [facility] [email or web address] [facility] 11/07/2024 14:29:27 Influenza, live, trivalent, intranasal 2 completed Narcisa Lozoya RMA null, [facility] [email or web address] [facility] 11/07/2024 14:29:11 COVID-19, mRNA, LNP-S, PF, 100 mcg/0.5mL dose or 50 mcg/0.25mL dose 1 completed Narcisa Lozoya RMA null, [facility] [facility] [employer] [facility] 11/07/2024 14:29:11 COVID-19, mRNA, LNP-S, PF, 100 mcg/0.5mL dose or 50 mcg/0.25mL dose 1 completed Narcisa Lozoya RMA null, [facility] [email or web address] [facility] 11/07/2024 14:29:11 COVID-19, mRNA, LNP-S, PF, 100 mcg/0.5mL dose or 50 mcg/0.25mL dose 1 completed Narcisa Lozoya RMA null, [facility] [email or web address] [facility] 11/07/2024 14:29:11 Influenza, split virus, quadrivalent, preservative 9 completed Not Available [facility] 01/19/2023 05:00:25 Influenza, MDCK, trivalent, PF 5 completed Not Available [facility] 01/19/2023 05:00:25 COVID-19, mRNA, LNP-S, PF, 100 mcg/0.5mL dose or 50 mcg/0.25mL dose 1 completed HARLEY Rivera, [place] [facility] [employer] [facility] 11/07/2024 14:29:11 Influenza, split virus, quadrivalent, preservative 0 completed Not Available [facility] 01/19/2023 05:00:25 Influenza, split virus, quadrivalent, preservative 8 completed Not Available [facility] 01/19/2023 05:00:25 Influenza, MDCK, trivalent, PF 4 completed Not Available [facility] 01/19/2023 05:00:25 Influenza, split virus, quadrivalent, PF 2 completed Not Available [facility] 01/19/2023 05:00:25 Influenza, split virus, quadrivalent, PF 1 completed Not Available [facility] 01/19/2023 05:00:25 Influenza, split virus, quadrivalent, PF 9 completed Not Available [facility] 01/19/2023 05:00:26 Tdap 8 completed Not Available [facility] 01/19/2023 05:00:26 Influenza, split virus, quadrivalent, PF 0 completed Not Available [facility] 01/19/2023 05:00:26 Influenza, split virus, trivalent, PF 3 completed HARLEY Rivera, [employer] [facility] 11/07/2024 14:29:11 Past Encounters Encounter ID Performer Location Encounter Start Date Encounter Closed Date Diagnosis/Indication Diagnosis SNOMED-CT Code Diagnosis ICD10 Code Diagnosis Note [id number] [facility] [address] [address] 04/10/2021 00:00:00 04/10/2021 16:08:09 [id number] [facility] Internal Med [facility] [address] [place] [address] 04/14/2021 00:00:00 09/14/2021 18:12:26 [id number] [facility] Internal [facility] [address] [place] [address], [address] [address] 08/27/2021 00:00:00 09/14/2021 17:59:02 [id number] [facility] Internal [facility] [address] [address] 08/31/2021 00:00:00 08/31/2021 09:58:34 [id number] [facility] Pulmon[facility] [place] [address] [place] [address] 09/18/2021 00:00:00 09/18/2021 13:39:19 [id number] [facility] Internal Med [facility] [address] [address] 01/07/2022 00:00:00 01/07/2022 10:06:48 [id number] [facility] Pulmon[facility] [place] [address] [place] [address] 03/19/2022 00:00:00 03/19/2022 11:10:23 [id number] [facility] [address] [address] 03/23/2022 00:00:00 03/23/2022 13:33:51 [id number] [facility] [address] [address] 04/01/2022 00:00:00 04/01/2022 13:57:56 [id number] [facility] Internal [facility] [address] [address] 05/11/2022 00:00:00 05/11/2022 15:44:31 [id number] [facility] Internal Med [facility] [address] [address] 08/10/2022 00:00:00 10/11/2022 12:48:07 [id number] [facility] Internal Med [facility] [address] [place] [address] [address] [address] 09/02/2022 00:00:00 09/02/2022 12:30:47 [id number] [facility] Pulmon[facility] [place] [address] [place] [address] 09/20/2022 00:00:00 09/20/2022 13:33:41 [id number] [facility] Internal [facility] [place] [address] [facility] [place] [address] [place] [address] 01/11/2023 00:00:00 01/11/2023 09:30:49 [id number] Michelle Dewitt, [employer] [facility] Pul[facility] [place] [address] [place] [address] 03/14/2023 10:02:56 03/14/2023 11:32:21 Multiple nodules of lung 405529286 R91.[address] 1Rep eat CT 03/10/22 with 4mm RUL, 3mm RUL, 5mm RML, minor fissure nodule up to 6mm, 4mm RLL - these are all stable per dictation from CT ls o with calcified granulomas and lymph nodes.Hist oplasma, blastomyce s, legionella all negativeQu antiferon GOLD negativeAC E normal, LUPE and RF normalHP panel negative.R epeat CT due 02/2023 - ordered today Asthma-chr onic obstructive pulmonary disease overlap syndrome [id number] 2267587 J44.9 Continue ICS/LAMA/L RITA - will trial Breztri 2 puffs BIDInstruc gonzales on use and techniqueS he is aware to rinse and spit after useAerocha mbdacia providedI have encouraged her to apply for the patient assistance program, forms printed out for patient todayRescu e MDI PRN - discussed indication s for usePFT 08/2021 with moderate obstructio n - in chartGood BD responseDL CO high when correctedR ecommend pulmonary rehab.Disc ussed reportable signs and symptomsCu rrent on influenza vaccineRTC in 6 months, PRN for concerns Dyspnea on exertion 6084 5006 R06.09 Six minute walk normal 08/2021Inc rease activity.W eight lossIGGs normalBNP normalRAST with one mild reaction to alternaria but HP panel negativeSh e must quit smoking Obstructiv e sleep apnea syndrome 94053156 G47.33 She is not compliant with PAPWe have discussed the risks of uncorrecte d RONNELL, including Gastroesop hageal reflux disease without esophagitis 051175219 K21.9 Discussed dietary modificati onsAvoid tight clothing.N o eating 2-3 hours prior to bedAvoid offending foods E levate head of bed while sleeping Chronic cough 51334851 R 05.3 She must quit smokingMul tifactoral Nicotine dependence 5629 4008 Z87.891 Smoking cessation counseling and techniques reviewed at length. L iterature reviewed.A void triggers, support groups.Dis traction techniques Greater than 3 but less than 10 minutes spent discussing cessation. Declines NRT.Discus sed Rx options if needed in the future. [id number] Denia hamm MD [facility] Internal Med [facility] 2043 [facility], [address] [place] [address] 07/12/2023 09:26:12 07/12/2023 10:05:55 Screening - NAD 969256338 Z13.9 C-scope: 06/25/2008 , Dr VidseColog uard 06/08/18: Neg, ordered cologuard 08/10/2022 Mammogram: 06/02/18: NegMammogr am: 11/11/2020 : NegMammogr am: 02/02/2022 : NegMammogr am: 05/05/2023 Bi Rads 0, case sentToday 07/12/2023 , she states that it is scheduled for 08/04/2023 PAP: Sees an OB in [facility], last year was normal Dr Choudhary have a WWE Brie Hopper 08/28/2020 DEXA: 11/11/2021 : WNL UTD on flu shot 09/16/2020 Get tdap if not done 10/31/18UT D COVID 19 vaccineHer DMV handicap form was filled 10/31/18 RTC 4 monthsDo labsER if worseShe did verbalize her understand ing of the above Essential hypertension 25461853 I10 On HCTZ 12.5mg dailyOn Verapamil ER 180mg dailyOn quinapril 40mg daily Does wellGet labs Hyperlipidemia 08808616 E78.5 On atorvastat in 40mg dailyOn vascepa but has not taken it as it is expensive Does not want any more meds, wants to diet and exercise 01/11/2023 Repeat the labs Type 2 elias betes mellitus without complication 916517026 E11.9 On glipizide 5mg daily Does not want to see podiatry, states 'no one is touching my feet'Needs to see eye MD Smoker 76272532 F17.200 1 PPD for 30+ years Michelle Dewitt [employer] next 09/20/2022 Asthma 090779433 J45.90 9 On albuterolO n singulairO n proairOn spirivaOn symbicort Michelle Dewitt [employer] 03/14/2023 CT chest 03/17/2021 Obstructiv e sleep apnea syndrome 75005122 G47.33 On CPAP, sees Michelle Dewitt [employer] Coronary arteriosclerosis 27410588 I25.10 S/p stress test 04/12/19: negGet an apt with Dr Sylvester [facility] but now she would like to see Dr Larry Waller 08/09/2022 , should get CC, be on ASA 81mg daily D/c [facility] d/c 09/15/2022 , s/p CC, s/p mid LAD stenosis, s/p stent, f/u Dr Waller 09/2022 Pain of le ft shoulder joint [id number] 9832615 M25.512 States that she his L handed, no trauma, is unable to lift her shoulder up, has seen Dr Reed in the past was told to get her shoulder replaced, but was told to 'lose weight' Wants another ortho opinion, will refer to Dr Eden 01/11/[address] Giordano is not doing shoulder surgeries as per her history On flexerill as needed, all side effects explained to her Vitamin D deficiency 347 60249 E55.9 Get on vit d weekly and repeat the labs [id number] Michelle Dewitt, [facility] Pulmonolo gy [place] [address] [place] [address] 09/16/2023 09:53:37 09/16/2023 11:03:29 Multiple nodules of lung 148046263 R91.[address] 1Rep eat CT 03/10/22 with 4mm RUL, 3mm RUL, 5mm RML, minor fissure nodule up to 6mm, 4mm RLL - these are all stable per dictation from CT 1Als o with calcified granulomas and lymph nodes.Hist oplasma, blastomyce s, legionella all negativeQu antiferon GOLD negativeAC E normal, LUPE and RF normalHP panel negative.R epeat CT 03/2023 with no change in nodules.Mi ld atelectasi sNext CT due 03/2024 Asthma-chr onic obstructive pulmonary disease overlap syndrome [id number] J44.9 Continue ICS/LAMA/L RITA - Breztri 2 puffs BIDThis is covered by the patient assistance programRes sivakumar [place] PRN - discussed indication s for usePFT 08/2021 with moderate obstructio n - in chartGood BD responseDL CO high when correctedN eeds repeat, she will consider this springReco mmend pulmonary rehab.Disc ussed reportable signs and symptomsCu rrent on influenza vaccineShe should follow up in 6 months Dyspnea on exertion 6084 5006 R06.09 Six minute walk normal 08/2021Inc rease activity.W eight lossIGGs normalBNP normalRAST with one mild reaction to alternaria but HP panel negativeSh e must quit smoking Obstructiv e sleep apnea syndrome 81471322 G47.33 She is not compliant with PAPWe have discussed the risks of uncorrecte d RONNELL, including Gastroesop hageal reflux disease without esophagitis 014945015 K21.9 Discussed dietary modificati onsAvoid tight clothing.N o eating 2-3 hours prior to bedAvoid offending foods E levate head of bed while sleeping Chronic cough 15870933 R 05.3 She must quit smokingMul tifactoral Nicotine dependence 5629 4008 Z87.891 Smoking cessation counseling and techniques reviewed at length. L iterature reviewed.A void triggers, support groups.Dis traction techniques Greater than 3 but less than 10 minutes spent discussing cessation. Declines NRT.Discus sed Rx options if needed in the future. [id number] Denia hamm MD [facility] Internal Med [facility] [address] [facility], [place] [address] [place] [address] 10/27/2023 09:37:20 10/27/2023 10:11:15 Screening - NAD 134591168 Z13.9 C-scope: 06/25/2008 , Dr VidesColog uard 06/08/18: Neg, ordered cologuard 08/10/2022 Mammogram: 06/02/18: NegMammogr am: 11/11/2020 : NegMammogr am: 02/02/2022 : NegMammogr am: 05/05/2023 Bi Rads 0, case sentToday 07/12/2023 , she states that it is scheduled for 08/04/2023 Mammogram: 08/04/2023 : Neg PAP: Sees an OB in [facility], last year was normal Dr [facility] DEXA: 11/11/2021 : WNL UTD on flu shot 09/16/2020 Get tdap if not done 10/31/18UT D COVID 19 vaccineHer DMV handicap form was filled 10/31/18 RTC 4 monthsDo labsER if worseShe did verbalize her understand ing of the above Essential hypertension 76509608 I10 On HCTZ 12.5mg dailyOn Verapamil ER 180mg dailyOn quinapril 40mg daily Does wellGet labs Hyperlipidemia 75232342 E78.5 On atorvastat in 40mg dailyOn vascepa but has not taken it as it is expensive Does not want any more meds, wants to diet and exercise 01/11/2023 Repeat the labs Type 2 elias betes mellitus without complication 355997373 E11.9 On glipizide 5mg daily Does not want to see podiatry, states 'no one is touching my feet'Needs to see eye Asthma 680749628 J45.90 9 On albuterolO n singulairO n proairOn breztriNot on spirivaNot on symbicort Michelle Dewitt [employer] 03/14/2023 CT chest 03/17/2021 CT chest 03/22/2023 Smoker 83504327 F17.200 1 PPD for 30+ years Mihcelle Dewitt [employer] Obstructiv e sleep apnea syndrome 49951355 G47.33 On CPAP, sees Michelle Dewitt [employer] Coronary arteriosclerosis 28490498 I25.10 S/p stress test 04/12/19: jose alfredoGet an apt with Dr Sylvester [facility] but now she would like to see Dr Larry Waller 08/09/2022 , should get CC, be on ASA 81mg daily D/c [facility] d/c 09/15/2022 , s/p CC, s/p mid LAD stenosis, s/p stent, f/u Dr Waller 09/2022 Vitamin D deficiency 347 96574 E55.9 Get on vit d weekly and repeat the labs Pain of le ft shoulder joint 0112703577 4413427 M25.512 States that she his L handed, no trauma, is unable to lift her shoulder up, has seen Dr Reed in the past was told to get her shoulder replaced, but was told to 'lose weight' Wants another ortho opinion, will refer to Dr Eden 01/11/[address] Giordano is not doing shoulder surgeries as per her history On flexerill as needed, all side effects explained to her Screening for osteoporosis 351793155 Z13.820 Low back pain 508942572 M54.50 Get xray TLS spineShe is on flexerill, take this as neededGet on meloxicam as needed, if not better may need PT [id number] Denia hamm MD [facility] Internal Med [facility] 15 [address] [facility], [address] [address] 03/01/2024 09:16:11 03/01/2024 09:56:46 Screening - NAD 308918516 Z13.9 C-scope: 06/25/2008 , Dr VidesColog uard 06/08/18: Neg, ordered cologuard 08/10/2022 Mammogram: 06/02/18: NegMammogr am: 11/11/2020 : NegMammogr am: 02/02/2022 : NegMammogr am: 05/05/2023 Bi Rads 0, case sentToday 07/12/2023 , she states that it is scheduled for 08/04/2023 Mammogram: 08/04/2023 : Neg PAP: Sees an OB in [facility], last year was normal Dr Choudhary have a WWE Brie Hopper 08/28/2020 DEXA: 11/11/2021 : WNL UTD on flu shot 09/16/2020 Get tdap if not done 10/31/18UT D COVID 19 vaccineHer DMV handicap form was filled 10/31/18 RTC 4 monthsDo labsER if worseShe did verbalize her understand ing of the above Essential hypertension 52523996 I10 On HCTZ 12.5mg dailyOn Verapamil ER 180mg dailyNot on quinapril 40mg dailyOn lisinopril 20mg daily Does wellGet labs Hyperlipidemia 72091232 E78.5 On atorvastat in 40mg dailyOn vascepa but has not taken it as it is expensive Does not want any more meds, wants to diet and exerciseRe peat the labs Type 2 elias betes mellitus without complication 536082858 E11.9 On glipizide 5mg daily Does not want to see podiatry, states 'no one is touching my feet'Needs to see eye Asthma 990849330 J45.90 9 On albuterolO n singulairO n proairOn breztriNot on spirivaNot on symbicort Michelle Dewitt [employer] 03/14/2023 CT chest 03/17/2021 CT chest 03/22/2023 Smoker 16431458 F17.200 1 PPD for 30+ years Michelle Dewitt [employer]/Dr Capone referred Obstructiv e sleep apnea syndrome 06495489 G47.33 On CPAP, seen Michelle Dewitt [employer] Coronary arteriosclerosis 35483237 I25.10 S/p stress test 04/12/19: negGet an apt with Dr Sylvester [facility] but now she would like to see Dr Larry Waller 08/09/2022 , should get CC, be on ASA 81mg daily D/c [facility] d/c 09/15/2022 , s/p CC, s/p mid LAD stenosis, s/p stent, f/u Dr Waller r Larry 10/26/2023 , f/u in one year Vitamin D deficiency 347 97461 E55.9 Get on vit d weekly and repeat the labs Pain of le ft shoulder joint 7858602820 8355303 M25.512 States that she his L handed, no trauma, is unable to lift her shoulder up, has seen Dr Reed in the past was told to get her shoulder replaced, but was told to 'lose weight' Wants another ortho opinion, will refer to Dr Eden 01/11/[address] Giordano is not doing shoulder surgeries as per her history On flexerill as needed, all side effects explained to her Screening for osteoporosis 247445281 Z13.820 Low back pain 873599751 M54.50 Xray TLS spine 10/27/2023 She is on flexerill, take this as needed Adult [facility] th examination 726923644 Z00.00 Screening for disorder 474311588 Z13.9 [id number] Arun Capone MD [facility] [address] 04/10/2024 08:41:18 04/11/2024 08:36:28 Mild chronic obstructive pulmonary disease 461125396 J44.9 Smoker 50927681 F17.218 F17.219 Z87.406 [id number] Denia hamm MD [facility] [address] 07/05/2024 09:24:39 07/05/2024 10:13:51 Screening - NAD 314470262 Z13.9 C-scope: 06/25/2008 , Dr VidesColog uard 06/08/18: Neg, ordered cologuard 08/10/2022 Mammogram: 06/02/18: NegMammogr am: 11/11/2020 : NegMammogr am: 02/02/2022 : NegMammogr am: 05/05/2023 Bi Rads 0, case sentToday 07/12/2023 , she states that it is scheduled for 08/04/2023 Mammogram: 08/04/2023 : Neg PAP: Sees an OB in [facility], last year was normal [facility] DEXA: 11/11/2021 : WNL UTD on flu shot 09/16/2020 Get tdap if not done 10/31/18UT D COVID 19 vaccineHer DMV handicap form was filled 10/31/18 RTC 4 monthsDo labsER if worseShe did verbalize her understand ing of the above Essential hypertension 69591127 I10 On HCTZ 12.5mg dailyOn Verapamil ER 180mg dailyNot on quinapril 40mg dailyOn lisinopril 20mg daily Does wellGet labs Hyperlipidemia 86999653 E78.5 On atorvastat in 40mg dailyOn vascepa but has not taken it as it is expensive, will try to see if generic is covered will send this 07/05/2024 Does not want any more meds, wants to diet and exerciseRe peat the labs Type 2 elias betes mellitus without complication 014303889 E11.9 On glipizide 5mg daily Does not want to see podiatry, states 'no one is touching my feet'Needs to see eye Asthma 828801193 J45.90 9 On albuterolO n singulairO n proairOn breztriNot on spirivaNot on symbicort Michelle Dewitt [employer] 03/14/[address] Garza 2024 CT chest 03/17/2021 CT chest 03/22/2023 Smoker 67227664 F17.200 1 PPD for 30+ years Michelle Dewitt [employer]/Dr Capone referred Obstructiv e sleep apnea syndrome 71675265 G47.33 On CPAP, seen Michelle Dewitt [employer] Coronary arteriosclerosis 53608851 I25.10 S/p stress test 04/12/19: negGet an apt with Dr Sylvester [facility] but now she would like to see Dr Larry Waller 08/09/2022 , should get CC, be on ASA 81mg daily D/c [facility] d/c 09/15/2022 , s/p CC, s/p mid LAD stenosis, s/p stent, f/u Dr Waller 2Dr Larry 10/26/2023 , f/u in one year Vitamin D deficiency 347 40534 E55.9 Get on vit d weekly and repeat the labs Pain of le ft shoulder joint 9222890384 0549652 M25.512 States that she his L handed, no trauma, is unable to lift her shoulder up, has seen Dr Reed in the past was told to get her shoulder replaced, but was told to 'lose weight' Wants another ortho opinion, will refer to Dr Eden 01/11/[address] Giordano is not doing shoulder surgeries as per her history On flexerill as needed, all side effects explained to her Screening for osteoporosis 431832464 Z13.820 Low back pain 595130096 M54.50 Xray TLS spine 10/27/2023 She is on flexerill, take this as neededShe is agreeable to see pain management will refer to [facility] Screening mammography 24 915072 Z12.31 [id number] Denia hamm MD [facility] Internal Med [facility] [address] [address] 11/08/2024 09:31:48 11/08/2024 10:42:14 Screening - NAD 837964099 Z13.9 C-scope: 06/25/2008 , Dr VidesColog uard 06/08/18: Neg, ordered cologuard 08/10/2022 Mammogram: 06/02/18: NegMammogr am: 11/11/2020 : NegMammogr am: 02/02/2022 : NegMammogr am: 05/05/2023 Bi Rads 0, case sentToday 07/12/2023 , she states that it is scheduled for 08/04/2023 Mammogram: 08/04/2023 : Neg PAP: Sees an OB in [facility], last year was normal Dr Funmi manzano [facility] DEXA: 11/11/2021 : WNL UTD on flu shot 09/16/2020 Get tdap if not done 10/31/18UT D COVID 19 vaccineHer DMV handicap form was filled 10/31/18 RTC 4 monthsDo labsER if worseShe did verbalize her understand ing of the above Essential hypertension 15113886 I10 On HCTZ 12.5mg dailyOn Verapamil ER 180mg dailyNot on quinapril 40mg dailyOn lisinopril 20mg daily Does wellGet labs Hyperlipidemia 30766579 E78.5 On atorvastat in 80mg dailyNot on vascepa Does not want any more meds, wants to diet and exerciseRe peat the labs Type 2 elias betes mellitus without complication 245367026 E11.9 On glipizide 5mg daily Does not want to see podiatry, states 'no one is touching my feet'Needs to see eye Asthma 626978685 J45.90 9 On albuterolO n singulairO n proairOn breztriNot on spirivaNot on symbicort Michelle Dewitt [employer] 03/14/2023 , next apt on 11/19/[address] Dr Garza 2024 CT chest 03/17/2021 CT chest 03/22/2023 Smoker 08710422 F17.200 1 PPD for 30+ years Michelle Dewitt [employer]/Dr Capone referred Obstructiv e sleep apnea syndrome 40182530 G47.33 On CPAP, seen Michelle Dewitt [employer] Coronary arteriosclerosis 41391343 I25.10 S/p stress test 04/12/19: negGet an apt with Dr Sylvester [facility] but now she would like to see Dr Larry Waller 08/09/2022 , should get CC, be on ASA 81mg daily D/c [facility] d/c 09/15/2022 , s/p CC, s/p mid LAD stenosis, s/p stent, f/u Dr Waller r Larry 10/26/2023 , f/u in one yearDr Waller 10/31/2024 , next in one year Vitamin D deficiency 347 64665 E55.9 Get on vit d weekly and repeat the labs Pain of le ft shoulder joint 0174380311 8320814 M25.512 States that she his L handed, no trauma, is unable to lift her shoulder up, has seen Dr Reed in the past was told to get her shoulder replaced, but was told to 'lose weight' Wants another ortho opinion, will refer to Dr Eden 01/11/[address] Giordano is not doing shoulder surgeries as per her history On flexerill as needed, all side effects explained to her Screening for osteoporosis 058000716 Z13.820 Low back pain 125635092 M54.50 Xray TLS spine 10/27/2023 She is on flexerill, take this as neededShe is agreeable to see pain management will refer to [facility] OV 11/08/2024 : States that she does not want to see the [employer] at [facility] [place] [facility] mamm[facility] 24 045073 Z12.31 [id number] Denia hamm MD [facility] Internal Med [facility] 20[address] [facility], [facility] [address] [place] [address] 01/31/2025 09:30:00 01/31/2025 10:12:50 Screening - NAD 139429766 Z13.9 C-scope: 06/25/2008 , Dr VidesColog uard 06/08/18: Neg, ordered cologuard 08/10/2022 Mammogram: 06/02/18: NegMammogr am: 11/11/2020 : NegMammogr am: 02/02/2022 : NegMammogr am: 05/05/2023 Bi Rads 0, case sentToday 07/12/2023 , she states that it is scheduled for 08/04/2023 Mammogram: 08/04/2023 : Neg PAP: Sees an OB in [facility], last year was normal Dr Choudhary have a WWE Brie [facility] 08/28/2020 DEXA: 11/11/2021 : WNL UTD on flu shot 09/16/2020 Get tdap if not done 10/31/18UT D COVID 19 vaccineHer DMV handicap form was filled 10/31/18 RTC 4 monthsDo labsER if worseShe did verbalize her understand ing of the above Essential hypertension 43630276 I10 On HCTZ 12.5mg dailyOn Verapamil ER 180mg dailyNot on quinapril 40mg dailyOn lisinopril 20mg daily Does wellGet labs Hyperlipidemia 48798324 E78.5 On atorvastat in 80mg dailyNot on vascepa Does not want any more meds, wants to diet and exerciseRe peat the labs Type 2 elias betes mellitus without complication [id number] E11.9 On glipizide 5mg daily Does not want to see podiatry, states 'no one is touching my feet'Needs to see eye Asthma [id number] J45.90 9 On albuterolO n singulairO n proairOn breztriNot on spirivaNot on symbicort Michelle Dewitt [employer] 03/14/2023 , next apt on 11/19/20[address] Dr Garza 2024 [address] chest 03/17/2021 CT chest 03/22/2023 Smoker [id number] F17.200 1 PPD for 30+ years Michelle Dewitt [employer]/Dr Capone referred Obstructiv e sleep apnea syndrome [id number] G47.33 On CPAP, seen Michelle Dewitt [employer] Coronary arteriosclerosis [id number] I25.10 S/p stress test 04/12/19: Serge an apt with Dr Sylvester [facility] but now she would like to see Dr Larry Waller 08/09/2022 , should get CC, be on ASA 81mg daily D/c Chino Burris d/c 09/15/2022 , s/p CC, s/p mid LAD stenosis, s/p stent, f/u Dr Waller r Larry 10/26/2023 , f/u in one yearDr Waller 10/31/2024 , next in one year Vitamin D deficiency [id number] E55.9 Get on vit d weekly and repeat the labs Pain of le ft shoulder joint [id number] M25.512 States that she his L handed, no trauma, is unable to lift her shoulder up, has seen Dr Reed in the past was told to get her shoulder replaced, but was told to 'lose weight' Wants another ortho opinion, will refer to Dr Eden 01/11/[address] Giordano is not doing shoulder surgeries as per her history On flexerill as needed, all side effects explained to her Screening for osteoporosis [id number] Z13.820 Low back pain [id number] M54.50 Xray TLS spine 10/27/2023 She is on flexerill, take this as neededShe is agreeable to see pain management will refer to [facility] OV 11/08/2024 : States that she does not want to see the [employer] at [facility], [place] to refill the flexerill Screening mammography 24 [id number] Z12.31 Health Concerns Section Related Observation LastModified by Organization Detai ls LastModified Time None Recorded Concern Status LastModified by Organization Details LastModified Time None Recorded Advance Directives Directive N: Payers Encounter Date Sequence Insurance Name Policy Number Policy Baker Covered Member ID Baker Member ID Guarantor Name 03/01/2024 1 [employer] (MEDICARE REPLACEMENT HMO) Avani Jose A Malik [id number] Avani Jose A Malik 04/10/2024 1 [employer] (MEDICARE REPLACEMENT HMO) Avani G Malik [id number] Avani G Malik 07/05/2024 1 [employer] (MEDICARE REPLACEMENT HMO) Avani G Malik [id number] Avani G Malik 11/08/2024 1 [employer] (MEDICARE REPLACEMENT HMO) Avani G Malik [id number] Avani Jose A Malik 01/31/2025 1 [employer] (MEDICARE REPLACEMENT HMO) Avani Jose A Malik [id number] Avani Jose A Malik Notes Date Note Type Note Provider Name and Address Organization Details Recorded Time 03/01/2024 text/html Here to nirav Noland Hx:AsthmaHTNHLDRevie wed social family and surgical historyHere to discuss the above and get labs OV 02/27/19:Here for her routine aptS/p R/L wrist on 01/30/19, she is not seeing the ortho is now wanting to see Dr Pizarro as her WC has denied the elbow injuryOV 03/13/19:S/p ER visit for cough and SOB, she did have xray and was treated with HHNs in the ERStill has SOB and a coughCough is dryC/o wheezing and SOBNo blood in sputum and has nasal congestionC/o headaches, no N/V, some diarrhea, none now+ve fevers with chills, not todayNo chest pain, just hurts to cough OV 03/29/19:Here for her f/u [facility] is now on O2She also has elbow pain thru her WC but this was denied OV 05/31/19:Here for her routine follow upStates that she did a 'walk test' and was told that she did not need the O2, she feels well at this timeShe did do the labs on 05/30/19 and is here to review theseShe is SOB with walking and if hot outsideNot back at work OV 08/23/19:Here for her routine follow upShe feels Esmer did do the labs on 08/08/19Shleo is still off work and needs a note for this todayShleo is now not on any O2, but is to get a sleep study done, states that she cannot tolerate the CPAP OV 12/27/2019Here for her routine aptShe still has LBP and wants to get some hydrocodone, she denies any N/T in legs, or weakness in the legs or bowel or bladderShe has not done her labs and is s/p surgery on the elbows OV 05/20/2020:Here for her routine aptShe did do the labsShe feels well, still has the LBPShe does not want to see pain management, and has not seen [facility] yetViviana does have an apt with pulmonaryOV 09/16/2020;Here for her routine aptShe is doing well has been to a dentist for her teethShe did see cardiology, OB and pulmonaryShleo has done the labs thru questOV 12/17/2020:Here for her routine aptShe is doing very Esmer did do the labs, mammogram and DEXAAlso did see pulmonary as per her historyOV 04/14/2021:Here for her routine aptShe is doing Esmer did do the labsOV 08/27/2021:Here for her routine aptShe feels Esmer did do the labs on 08/12/2021OV 01/07/2022:Here for her routine aptShe is doing Esmer has done labs OV 05/11/2022:Here for her routine aptShe is doing Esmer did do the labs on 2OV 08/10/2022:Here for her f/u apt, she feels well, no recent labs notedHas noted L shoulder pain, unable to lift her armOV 01/11/2023:Here for her routine apt, she did do the labs, states that she did see Dr Giordano but he is not doing shoulder surgeries, wants another referral now OV 07/12/2023: Here for her f/u apt, she is doing well, she did do the labs on 07/07/2023 OV 10/27/2023: Here for her routine apt, states that she is doing well today, c/o L>R mid back pain, states that this is ongoing since 2 months, no N/T or weakness in the UE or LE, no loss of bowel or bladder control OV 03/01/2024: Here for her f/u apt and also to do her MWV, she is doing well today Denia Lee MD [address] [facility], [facility] [address], [place], [address], [place] [facility] 03/07/2024 18:01:45 04/10/2024 text/html Primary care/Referring provider: Denia Lee MD Patient is here to go over COPD management. Initial development of shortness of breath: 2011 Duration of shortness of breath: 12 years Condition of shortness of breath: stable Timing of shortness of breath: none Frequency: up to 2 times a day Limits activities: yes Aggravating factors: walking, weeding, mowing Alleviating factors: rest Modified [employer] [place] (mMRC) Dyspnea Scale - Grade 2 Grade 0 I only get breathless with strenuous exercise . Grade 1 I get short of breath when hurrying on the level or walking up a slight hill . Grade 2 I walk slower than people of the same age on the level because of breathlessness or have to stop for breath when walking at my own pace on the level . Grade 3 I stop for breath after walking about 100 yards or after a few minutes on the level . Grade 4 I am too breathless to leave the house or I am breathless when dressing . Treatment history: Albuterol nebs as needed since 2011-2018Albuterol HFA as needed since 2011 [facility] 160/9/4.8 mcg 2 puffs BID since 2021 through patient assistance program Montelukast 10 mg daily since 2011 Other symptoms: Drooling: no Dysarthria: no Neck pain: no Odynophagia: no Dysphagia: no Weak mastication: no Facial weakness: no Nasal speech: no Protruding tongue: no Productive cough: no Wheezing: no Chest tightness: yes Orthopnea: no Frequent throat clearing or swallowing: no Palpitations: no Heartburn: no Edema: no Environmental exposures: Nicotine smoke: 1.5 ppd since 1993 (quit 2 years in between) = 42 pack years [place]: no Dye: no Dust mites: yes Mold: no Damp basement: no Wood burning stove: no Animal dander: dogs Cockroaches: no Pollen: yes Arsenic: no Asbestos: no Beryllium: no Cadmium: no Chromium: no [place] smoke: no Diesel fumes: no Nickel: no Silica: no Soot: no EPWORTH SLEEPINESS SCALE (ESS) CHANCE OF DOZING SCORE 0 = would never doze 1 = slight chance of dozing 2 = moderate chance of dozing 3 = high chance of dozing SITUATION AND CHANCE OF DOZING Sitting and reading - 0 Watching television - 0 Sitting inactive in a public place (e.g. a theater or meeting) - 0 As a passenger in a car for an hour without a break - 0 Lying down to rest in the afternoon when circumstances permit - 0 Sitting and talking to someone - 0 Sitting quietly after lunch without alcohol - 0 In a car, while stopped for a few minutes in the traffic - 0 TOTAL SCORE 0 Subjectively, patient has no chance of dozing. Arun Capone MD [address] [place] [address], [facility] [address], [place], [address], [facility] [employer] 04/10/2024 09:52:16 07/05/2024 text/html Here to nirav Noland Hx:AsthmaHTNHLDRevie wed social family and surgical historyHere to discuss the above and get labs OV 02/27/19:Here for her routine aptS/p R/L wrist on 01/30/19, she is not seeing the ortho is now wanting to see Dr Pizarro as her WC has denied the elbow injuryOV 03/13/19:S/p ER visit for cough and SOB, she did have xray and was treated with HHNs in the ERStill has SOB and a coughCough is dryC/o wheezing and SOBNo blood in sputum and has nasal congestionC/o headaches, no N/V, some diarrhea, none now+ve fevers with chills, not todayNo chest pain, just hurts to cough OV 03/29/19:Here for her f/u [facility] d[facility]c 2 [facility] is now on O2She also has elbow pain thru her WC but this was denied OV 05/31/19:Here for her routine follow upStates that she did a 'walk test' and was told that she did not need the O2, she feels well at this timeShe did do the labs on 05/30/19 and is here to review theseShe is SOB with walking and if hot outsideNot back at work OV 08/23/19:Here for her routine follow upShe feels Esmer did do the labs on 08/08/19Shleo is still off work and needs a note for this todayViviana is now not on any O2, but is to get a sleep study done, states that she cannot tolerate the CPAP OV 12/27/2019Here for her routine aptShe still has LBP and wants to get some hydrocodone, she denies any N/T in legs, or weakness in the legs or bowel or bladderShe has not done her labs and is s/p surgery on the elbows OV 05/20/2020:Here for her routine aptShe did do the labsShe feels well, still has the LBPShe does not want to see pain management, and has not seen [facility] yetViviana does have an apt with pulmonaryOV 09/16/2020;Here for her routine aptShe is doing well has been to a dentist for her teethShe did see cardiology, OB and pulmonaryShe has done the labs thru questOV 12/17/2020:Here for her routine aptShe is doing very Esmer did do the labs, mammogram and DEXAAlso did see pulmonary as per her historyOV 04/14/2021:Here for her routine aptShe is doing Esmer did do the labsOV 08/27/2021:Here for her routine aptShe feels Esmer did do the labs on 08/12/2021OV 01/07/2022:Here for her routine aptShe is doing wellSjanneth has done labs OV 05/11/2022:Here for her routine aptShe is doing Esmer did do the labs on 2OV 08/10/2022:Here for her f/u apt, she feels well, no recent labs notedHas noted L shoulder pain, unable to lift her armOV 01/11/2023:Here for her routine apt, she did do the labs, states that she did see Dr Giordano but he is not doing shoulder surgeries, wants another referral now OV 07/12/2023: Here for her f/u apt, she is doing well, she did do the labs on 07/07/2023 OV 10/27/2023: Here for her routine apt, states that she is doing well today, c/o L>R mid back pain, states that this is ongoing since 2 months, no N/T or weakness in the UE or LE, no loss of bowel or bladder control OV 03/01/2024: Here for her f/u apt and also to do her MWV, she is doing well today OV 07/05/2024: Here for her f/u apt, she is doing well today Denia Lee MD [address] [place] [address], [facility] [address], [place], [address], [facility] [employer] 07/12/2024 14:26:46 11/08/2024 text/html Here to nirav Noland Hx:AsthmaHTNHLDRevie wed social family and surgical historyHere to discuss the above and get labs OV 02/27/19:Here for her routine aptS/p R/L wrist on 01/30/19, she is not seeing the ortho is now wanting to see Dr Pizarro as her WC has denied the elbow injuryOV 03/13/19:S/p ER visit for cough and SOB, she did have xray and was treated with HHNs in the ERStill has SOB and a coughCough is dryC/o wheezing and SOBNo blood in sputum and has nasal congestionC/o headaches, no N/V, some diarrhea, none now+ve fevers with chills, not todayNo chest pain, just hurts to cough OV 03/29/19:Here for her f/u [facility] is now on O2She also has elbow pain thru her WC but this was denied OV 05/31/19:Here for her routine follow upStates that she did a 'walk test' and was told that she did not need the O2, she feels well at this timeShe did do the labs on 05/30/19 and is here to review theseShe is SOB with walking and if hot outsideNot back at work OV 08/23/19:Here for her routine follow upShe feels Esmer did do the labs on 08/08/19Shleo is still off work and needs a note for this todayShelo is now not on any O2, but is to get a sleep study done, states that she cannot tolerate the CPAP OV 12/27/2019Here for her routine aptShe still has LBP and wants to get some hydrocodone, she denies any N/T in legs, or weakness in the legs or bowel or bladderShe has not done her labs and is s/p surgery on the elbows OV 05/20/2020:Here for her routine aptShe did do the labsShe feels well, still has the LBPShe does not want to see pain management, and has not seen [facility] yetViviana does have an apt with pulmonaryOV 09/16/2020;Here for her routine aptShe is doing well has been to a dentist for her teethShe did see cardiology, OB and pulmonaryShleo has done the labs thru questOV 12/17/2020:Here for her routine aptShe is doing very Esmer did do the labs, mammogram and DEXAAlso did see pulmonary as per her historyOV 04/14/2021:Here for her routine aptShe is doing Esmer did do the labsOV 08/27/2021:Here for her routine aptShe feels Esmer did do the labs on 08/12/2021OV 01/07/2022:Here for her routine aptShe is doing Esmer has done labs OV 05/11/2022:Here for her routine aptShe is doing Esmer did do the labs on 2OV 08/10/2022:Here for her f/u apt, she feels well, no recent labs notedHas noted L shoulder pain, unable to lift her armOV 01/11/2023:Here for her routine apt, she did do the labs, states that she did see Dr Giordano but he is not doing shoulder surgeries, wants another referral now OV 07/12/2023: Here for her f/u apt, she is doing well, she did do the labs on 07/07/2023 OV 10/27/2023: Here for her routine apt, states that she is doing well today, c/o L>R mid back pain, states that this is ongoing since 2 months, no N/T or weakness in the UE or LE, no loss of bowel or bladder control OV 03/01/2024: Here for her f/u apt and also to do her MWV, she is doing well today OV 07/05/2024: Here for her f/u apt, she is doing well today OV 11/08/2024: Here for her f/u apt, she feels well today, she did do the labs on 11/07/2024 Denia Lee MD [address] [facility], [address], [place], [address], [place] [facility] [employer] 11/09/2024 22:09:45 01/31/2025 text/html Here to nirav Noland Hx:AsthmaHTNHLDRevie wed social family and surgical historyHere to discuss the above and get labs OV 02/27/19:Here for her routine aptS/p R/L wrist on 01/30/19, she is not seeing the ortho is now wanting to see Dr Pizarro as her WC has denied the elbow injuryOV 03/13/19:S/p ER visit for cough and SOB, she did have xray and was treated with HHNs in the ERStill has SOB and a coughCough is dryC/o wheezing and SOBNo blood in sputum and has nasal congestionC/o headaches, no N/V, some diarrhea, none now+ve fevers with chills, not todayNo chest pain, just hurts to cough OV 03/29/19:Here for her f/u [facility] d/c 2 weeksIs doing well at thisShe is now on O2She also has elbow pain thru her WC but this was denied OV 05/31/19:Here for her routine follow upStates that she did a 'walk test' and was told that she did not need the O2, she feels well at this timeShe did do the labs on 05/30/19 and is here to review theseShe is SOB with walking and if hot outsideNot back at work OV 08/23/19:Here for her routine follow upShe feels wellShe did do the labs on 08/08/19She is still off work and needs a note for this todayShe is now not on any O2, but is to get a sleep study done, states that she cannot tolerate the CPAP OV 12/27/2019Here for her routine aptShe still has LBP and wants to get some hydrocodone, she denies any N/T in legs, or weakness in the legs or bowel or bladderShe has not done her labs and is s/p surgery on the elbows OV 05/20/2020:Here for her routine aptShe did do the labsShe feels well, still has the LBPShe does not want to see pain management, and has not seen [facility] yetYovanae does have an apt with pulmonaryOV 09/16/2020;Here for her routine aptShe is doing well has been to a dentist for her teethShe did see cardiology, OB and pulmonaryShe has done the labs thru questOV 12/17/2020:Here for her routine aptShe is doing very Esmer did do the labs, mammogram and DEXAAlso did see pulmonary as per her historyOV 04/14/2021:Here for her routine aptShe is doing wellShe did do the labsOV 08/27/2021:Here for her routine aptShe feels Christinehe did do the labs on 08/12/2021OV 01/07/2022:Here for her routine aptShe is doing wellShe has done labs OV 05/11/2022:Here for her routine aptShe is doing wellShe did do the labs on 2OV 08/10/2022:Here for her f/u apt, she feels well, no recent labs notedHas noted L shoulder pain, unable to lift her armOV 01/11/2023:Here for her routine apt, she did do the labs, states that she did see Dr Giordano but he is not doing shoulder surgeries, wants another referral now OV 07/12/2023: Here for her f/u apt, she is doing well, she did do the labs on 07/07/2023 OV 10/27/2023: Here for her routine apt, states that she is doing well today, c/o L>R mid back pain, states that this is ongoing since 2 months, no N/T or weakness in the UE or LE, no loss of bowel or bladder control OV 03/01/2024: Here for her f/u apt and also to do her MWV, she is doing well today OV 07/05/2024: Here for her f/u apt, she is doing well today OV 11/08/2024: Here for her f/u apt, she feels well today, she did do the labs on 11/07/2024 OV 01/31/2025: Here for her f/u apt, she is doing well today and has done her labs Denia Lee MD [address] [place] [address] [place], [facility] [address], [place], [address], [place] [facility] 01/31/2025 10:11:31 OBGyn Episode No OBEpisode recorded.
--- OUTSIDE RECORDS SUMMARY | 2025-02-22 07:17 | XMS_ITS | CONTINUITY OF CARE DOCUMENT ---
Author Name sybil devine Address Unknown Organization [facility] Address [address] [place] [address] Phone [phone] Care Team Providers Care Director It Project Name Role Phone Higinio BAILEY, Ave Unavailable NIC TERRELL MD Unavailable [phone] NIC TERRELL MD Unavailable [phone] PROBLEMS Condition Status Date Provider Notes CAD active Desiree Felicia TOBACCO ABUSE active Desiree Felicia ASTHMA active Desiree Wilson FATIGUE active Desiree Wilson DYSLIPIDEMIA active Desiree Felicia SHORTNESS OF BREATH active Desiree Wilson OBESITY active Desiree Wilson HTN ESSENTIAL, echo 03/09 nml LV function active 05/22 Ave Sylvester MD Lung nodule left upper lobe active Ave yousif MD CAD cor calcifications on CT normal stress nuc 03/[address] Sylvester MD RONNELL active Luc Laboy ENCOUNTERS Date Type Provider Location Encounter Diag nosis - In-person encounter Office Visit Ave Sylvester MD [facility] RONNELL - In-person encounter Office Visit [facility] Sylvester MD [facility] CAD cor calcifications on CT normal stress nuc 03/2019 - In-person encounter Office Visit [facility] Sylvester MD [facility] Lung nodule left upper lobeCAD cor calcifications on CT normal stress nuc 03/2019 VITAL SIGNS Date Observation Value Provider Body Mass Index (Ratio) 41.64 kg/m2 Remy Sylvester MD blood pressure, diastolic 74 mm[Hg] Mi brody Angelina blood pressure, systolic 150 mm[Hg] Derrick raffaele Daljit respiratory rate E&M 20 /min Rosalba bailey Angelina oxygen saturation, oximetry 97 % Lashell Angelina pulse rate 80 /min Lashell Angelina weight E&M 282 [lb_av] Lashell Angelina temperature E&M 97.0 [degF] Lashell Vera maria luisa height E&M 69 [in_i] Lashell Angelina Body Mass Index (Ratio) 24.51 kg/m2 Remy Sylvester MD blood pressure, cuff size large Cr kathy Sheppard blood pressure, diastolic 78 mm[Hg] Cr kathy Sheppard blood pressure, systolic 122 mm[Hg] Cry stal Silver oxygen saturation, oximetry 96 % Christina Sheppard respiratory rate E&M 17 /min Christina Sheppard pulse rate 96 /min Christina li weight E&M 166 [lb_av] Christina Mendez s height E&M 69 [in_i] Christina Mendez s Body Mass Index (Ratio) 38.98 kg/m2 Remy Sylvester MD blood pressure, resting Yes [place] carl O'Nii blood pressure, diastolic 70 mm[Hg] Ma rsha O'Ini blood pressure, systolic 120 mm[Hg] Mayuri duran O'Nii oxygen saturation, oximetry 94 % Nury O'Nii respiratory rate E&M 16 /min Nury O'Nii pulse rate 92 /min Nury O'Nii weight E&M 264 [lb_av] Nury O'Nii height E&M 69 [in_i] Nury O'Nii ALLERGIES No Known Drug Allergies HISTORY OF MEDICATION USE Medication Status Instructions Dates Provider Indications Com ments SPIRIVA RESPIMAT 2.5 MCG/ACT INHALATION AEROSOL SOLUTION active TWO PUFFS 1X DAILY Lashell Bocanegra FENOFIBRATE 145 MG ORAL TABLET active ONE TAB 1X DAILY Lashell Bocanegra SYMBICORT 160-4.5 MCG/ACT INHALATION AEROSOL active 1 puff twice daily Nury O'Nii VERAPAMIL HCL ER 180 MG ORAL CAPSULE EXTENDED RELEASE 24 HOUR active ONE TAB. DAILY Nury O'Nii PRAVASTATIN SODIUM 20 MG ORAL TABLET active ONE TAB. DAILY Nury O'Nii HYDROCHLOROTHIAZIDE 12.5 MG ORAL CAPSULE active ONE TAB. DAILY Desiree Wilson VYTORIN 10-20 MG ORAL TABLET completed ONE TAB. AT BEDTIME - Nury O'Nii QUINAPRIL HCL 40 MG ORAL TABLET active ONE TAB. DAILY Desiree Felicia SINGULAIR 10 MG ORAL TABLET active one tab. daily Desiree Felicia SOCIAL HISTORY Date Observation Value Provider smoking status Current every day smoker N liz Laboy social history E&M S moking History: Carol thornton currently smokes every day. Luc Laboy social history reviewed E&M revi ewed - no changes required Luc Laboy number of grandchildren Ave Sylvester MD N liz Laboy number of years as a smoker 30 a Lashell Laytony smoking history, total pack/day 1 Lashellslade Laytony cigarette use yes Lashell Layton y number of years as a smoker [address] MD smoking history, total pack/day 1 Ave Sylvester MD smoking status Current every day smoker T yaya Sylvester MD social history E&M S moking History: Carol thornton is a former smoker. Ave Sylvester MD social history reviewed E&M revi ewed - no changes required Ave Sylvester MD cigarette use yes Christina Biggs ms social history reviewed E&M revi ewed - no changes required Ave Sylvester MD number of years as a smoker 30 a Nury NunezNii smoking history, total pack/day 1 Nury NunezNii cigarette use yes Nury NunezNii smoking status Former smoker Nury Hoffman l FUNCTIONAL STATUS Date Observation Value Provider HRA, CV Assess/Plan, Angina (inactive) Management Plan continue current therapy Luc Laboy FAMILY HISTORY Family Member Condition Father Family History of Hy pertension: Father Family History of Di abetes: Father Family History of Co ngestive Heart Failure: Mother Family History of Hy pertension: Mother Family History of Hy perlipidemia: INSURANCE PROVIDERS Payer name Policy type / Coverage type [employer] ID [employer] H[employer] HMO [id number] ADVANCE DIRECTIVES Name Date DISCUSSED - NO DECISION MADE TREATMENT PLAN Date Name Performer Cardiology:Uses CPAP intermitten tly. Luc Laboy Cardiology Luc Laboy Cardiology Luc Laboy Cardiology: B P today: 150/74 P rior BP: 122/78 (04/26/2019) Luc Laboy Cardiology Luc Laboy Cardiology Luc Laboy Cardiology Luc Laboy Cardiology Ave Sylvester MD Cardiology Ave Sylvester MD Cardiology Ave Sylvester MD Cardiology Ave Sylvester MD Cardiology Ave Sylvester MD Cardiology Ave Sylvester MD Cardiology Ave Sylvester MD Cardiology Ave Sylvester MD Cardiology Ave Sylvester MD Cardiology Ave Sylvester MD Cardiology Ave Sylvester MD Date Name Stress Regadenoson HISTORY OF PROCEDURES Procedure Date Procedure Name Provider Procedure Notes S tatus EKG Ave Sylvester MD completed Regadenoson, [address] MD completed Cardiolite, [address] MD completed SPECT Images Sherice Galvan MD compl eted Stress EKG Gautam Dill MD compl eted EKG Ave Sylvester MD completed
== END 2025-02-22 07:14 | disposition home or self-care (01) ==
PROVIDERS: PCP Internal Medicine; Visit Provider Internal Medicine
DX: Z12.31 Encounter for screening mammogram for malignant neoplasm of breast (principal); M81.0 Age-related osteoporosis without current pathological fracture
CPT/HCPCS: 77063; 77067; 77080